=== PATIENT | male | born 1985 | race Caucasian/White ===

== ENCOUNTER 2016-03-17 20:04 | Emergency (ER) | payer OTHER ==
[~2016-03-17] VITALS: Ht 175.3 cm; Wt 65.0 kg
[~2016-03-17 20:04] MED LIST: GABA-113 PO; HYDR2TAB48 PO; MIRT15TA PO
[2016-03-17 20:07] VITALS: TEMP 36.8; Ht 175.3 cm; Wt 65.0 kg
[2016-03-17] MEDS ORDERED: ONDANSETRON INJ 2 MG/ML 2 ML VIAL IV STA (20:46)
[2016-03-17] MEDS ORDERED: SODIUM CHLORIDE 0.9% 1000ML 1,000 ML IV STA (20:46)
[2016-03-17] MEDS ORDERED: HYDROmorphone INJ 1 MG/ML SYR IV STA ×2 (20:46→22:05)
[2016-03-17] MEDS ORDERED: OPTIRAY 320 IV PRN (21:00)
[2016-03-17 21:10] LABS: BASO % 0.2 %; BASO ABS # 0.01 K/uL (0-0.2); COMPLETE YES; EOS % 0.4 %; HEMATOCRIT 46.7 % (42-52); LYMPH % 29.1 %; LYMPH ABS # 1.33 K/uL (1.2-3.4); MEAN CELL VOLUME 86.2 fL (80-100); MEAN CORPUSCULAR HEMOGLOBIN 31.4 pg (25-34); MEAN CORPUSCULAR HGB CONC 36.4 g/dl (32-36); MEAN PLATELET VOLUME 10.2 fL (7.4-10.4); MONO % 10.5 %; NEUT % 59.8 %; PLATELET COUNT 129 K/uL (130-400); RED BLOOD COUNT 5.42 M/uL (4.7-6.1); WHITE BLOOD COUNT 4.57 K/uL (4.8-10.8)
[2016-03-17 21:19] LABS: CALCIUM 8.9 mg/dl (8.5-10.1); CREATININE 0.76 mg/dl (0.60-1.40); POTASSIUM 4.4 mmol/L (3.5-5.1)
--- NOTE | 2016-03-17 21:21 | EMERGENCY ROOM VISIT NOTE ---
History Report prepared by Hannah: Tushar Bosch Under the Supervision of: Dr. Jason Escalante M.D. 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 The pain is severe, but I have been passing gas which is different than last time." History of Present Illness The patient is a 30 year old male who presents to the Emergency Room with complaints of persistent abdominal pain beginning about 2.5 days ago. He notes he has been unable to pass gas for a few days, and that his last bowel movement was early yesterday morning and was minimal. He has had nausea, and induced vomiting but has not vomited on his own. He denies any fever or rash, and has not consumed alcohol recently. The patient notes he has a history of bowel obstruction and has had problems with his SMA. He reports a history of cholecystectomy, but denies any history of pancreatitis. The patient has not taken anything for pain. Source of History: patient Onset: about 2.5 days ago Position: abdomen Quality: other (abdominal pain) Timing: other (persistent) Associated Symptoms: + nausea, + vomiting (self-induced), No fevers, No rash Review of Systems See HPI for pertinent positives & negatives. A total of 10 systems reviewed and were otherwise negative. Past Medical & Surgical Medical Problems: (1) Amputation of right lower extremity (2) History of intestinal obstruction (3) History of left hip replacement Surgical Problems: (1) History of cholecystectomy Family History Cancer Diabetes mellitus Social History Smoking Status: Current Every Day Smoker Marital Status: single Occupation Status: employed Current/Historical Medications Scheduled Gabapentin (Neurontin), 300 MG PO TID Allergies Coded Allergies: Vancomycin (Verified Allergy, RASH, 09/06/12) Physical Exam Vital Signs Date Time Temp Pulse Resp B/P Pulse Ox O2 Delivery O2 Flow Rate FiO2 03/17/16 23:23 52 18 131/79 97 03/17/16 22:10 73 20 125/74 100 Room Air 03/17/16 20:07 36.8 80 18 129/81 98 Room Air Physical Exam GENERAL: Patient is uncomfortable appearing and in moderate distress. HEENT: No acute trauma, normocephalic atraumatic, mucous membranes moist, no nasal congestion, no scleral icterus. NECK: No stridor, no adenopathy, no meningismus, trachea is midline. LUNGS: No dyspnea. Clear to auscultation and equal bilaterally. No wheeze, no rhonchi. HEART: Regular rate and rhythm. No murmurs, rubs, gallops appreciated. ABDOMEN: Soft; tenderness to palpation to the epigastrium; bowel sounds positive , no masses appreciated, no peritonitis. BACK: No midline tenderness, no CVA tenderness EXTREMITIES: Normal motion all extremities, no cyanosis, no edema. NEUROLOGIC: Alert and oriented, no acute motor or sensory deficits, no focal weakness, cranial nerves grossly intact. SKIN: No rash, no jaundice; Diaphoresis noted. Medical Decision & Procedures ER Provider Diagnostic Interpretation: CT results are stated below per my interpretation and the radiologist's interpretation. CT SCAN OF THE ABDOMEN AND PELVIS WITH IV CONTRAST FINDINGS: Lung bases: The heart is normal in size and without pericardial effusion. The lung bases are clear. Liver: The contrast-enhanced liver is normal in size, contour, and attenuation. There is mild central intrahepatic biliary ductal dilatation. The hepatic veins and portal veins are patent. Gallbladder: Surgically absent noting clips in the gallbladder fossa. Spleen: Normal in size and attenuation. Pancreas: Unremarkable. Adrenal glands: Unremarkable. Kidneys: The contrast enhanced kidneys are normal in size and without hydronephrosis. The kidneys enhance symmetrically. Abdominal vasculature: The abdominal aorta is normal in course and caliber noting mild but age advanced atherosclerotic calcification. An infrarenal IVC filter is in place. Stomach and bowel: The gastric mucosa appears slightly thickened and hyperemic. The stomach and duodenum are normal in configuration. There is no bowel obstruction. Assessment of bowel is significant degraded by a paucity of intraperitoneal fat. Several loops of small bowel in the pelvis appears slightly distended and fluid-filled. Mild hyperemia is questioned. The appearance suggests a nonspecific enteritis. No pneumatosis intestinalis or portal venous gas is seen. The appendix is not clearly identified. Peritoneum: There is no intraperitoneal free air or abdominal ascites. Lymphadenopathy: None. Pelvic viscera: Evaluation of the pelvis is significantly degraded by streak artifact from bilateral hip hardware. The bladder, prostate, and seminal vesicles are grossly unremarkable but not well-visualized. Skeletal structures: The skeletal structures appear osteopenic. There is mild lumbosacral spondylosis. No lytic or blastic lesions are seen. A left hip arthroplasty is in place. Postoperative change and posttraumatic deformity is noted in the right proximal femur. Chronic deformity is noted in the pelvis. There is near complete fusion of the sacroiliac joints. 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 IMPRESSION: 1. The examination is significant degraded by a paucity of intraperitoneal fat. 2. The gastric folds appears slightly thickened and hyperemic. Correlate clinically for evidence of gastritis. 2. Several loops of small bowel in the pelvis appear slightly distended and fluid-filled. These loops show questionable mucosal hyperemia. Cortical clinically for evidence of a nonspecific enteritis. 3. No bowel obstruction is seen. 4. Additional chronic and postoperative changes as above. Electronically signed by: Feliz Rene M.D. 03/17/2016 9:50 PM Dictated Date/Time: 03/17/2016 9:43 PM Laboratory Results 03/17/16 20:25 Red Blood Count 5.42, Mean Corpuscular Volume 86.2, Mean Corpuscular Hemoglobin 31.4, Mean Corpuscular Hemoglobin Concent 36.4, Mean Platelet Volume 10.2, Neutrophils (%) (Auto) 59.8, Lymphocytes (%) (Auto) 29.1, Monocytes (%) (Auto) 10.5, Eosinophils (%) (Auto) 0.4, Basophils (%) (Auto) 0.2, Neutrophils # (Auto ) 2.73, Lymphocytes # (Auto) 1.33, Monocytes # (Auto) 0.48, Eosinophils # (Auto ) 0.02, Basophils # (Auto) 0.01 03/17/16 20:25 Test 03/17/16 20:25 03/17/16 20:58 03/17/16 21:03 White Blood Count 4.57 K/uL (4.8-10.8) Red Blood Count 5.42 M/uL (4.7-6.1) Hemoglobin 17.0 g/dL (14.0-18.0) Hematocrit 46.7 % (42-52) Mean Corpuscular Volume 86.2 fL (80-100) Mean Corpuscular Hemoglobin 31.4 pg (25-34) Mean Corpuscular Hemoglobin Concent 36.4 g/dl (32-36) Platelet Count 129 K/uL (130-400) Mean Platelet Volume 10.2 fL (7.4-10.4) Neutrophils (%) (Auto) 59.8 % Lymphocytes (%) (Auto) 29.1 % Monocytes (%) (Auto) 10.5 % Eosinophils (%) (Auto) 0.4 % Basophils (%) (Auto) 0.2 % Neutrophils # (Auto) 2.73 K/uL (1.4-6.5) Lymphocytes # (Auto) 1.33 K/uL (1.2-3.4) Monocytes # (Auto) 0.48 K/uL (0.11-0.59) Eosinophils # (Auto) 0.02 K/uL (0-0.5) Basophils # (Auto) 0.01 K/uL (0-0.2) RDW Standard Deviation 46.3 fL (36.4-46.3) RDW Coefficient of Variation 14.7 % (11.5-14.5) Immature Granulocyte % (Auto) 0.0 % Immature Granulocyte # (Auto) 0.00 K/uL (0.00-0.02) Est Creatinine Clear Calc Drug Dose 129.5 ml/min Estimated GFR () 140.9 Estimated GFR (Non- 121.6 BUN/Creatinine Ratio 25.0 (10-20) Calcium Level 8.9 mg/dl (8.5-10.1) Total Bilirubin 0.7 mg/dl (0.2-1) Direct Bilirubin 0.2 mg/dl (0-0.2) Aspartate Amino Transf (AST/SGOT) 26 U/L (15-37) Alanine Aminotransferase (ALT/SGPT) 71 U/L (12-78) Alkaline Phosphatase 82 U/L (45-117) Total Protein 8.1 gm/dl (6.4-8.2) Albumin 4.0 gm/dl (3.4-5.0) Lipase 145 U/L (73-393) Bedside Lactic Acid Venous 0.53 mmol/L (0.90-1.70) Bedside Hemoglobin 15.6 g/dl (14.0-18.0) Bedside Hematocrit 46 % (42-52) Bedside Sodium 140 mEq/L (135-144) Bedside Potassium 4.2 mEq/L (3.3-5.0) Bedside Chloride 103 mEq/L (101-112) Bedside Total CO2 25 mEq/l (24-31) Anion Gap 17.0 mmol/L (16-25) Bedside Blood Urea Nitrogen 22 mg/dl (7-18) Bedside Creatinine 0.7 mg/dl (0.6-1.3) Bedside Glucose (other) 88 mg/dl (70-99) Bedside Ionized Calcium (Genny) 1.08 mmol/l (1.12-1.32) Laboratory results as reviewed by me. Medications Administered Medications (Trade) Dose Ordered Sig/Todd Route Start Time Stop Time Status Last Admin Dose Admin Sodium Chloride (Nss 1000ml) 1,000 ml @ 999 mls/hr Q1H1M STAT IV 03/17/16 20:46 03/17/16 21:46 DC 03/17/16 20:55 999 MLS/HR Hydromorphone HCl (Dilaudid Inj) 1 mg NOW STAT IV 03/17/16 20:46 03/17/16 20:48 DC 03/17/16 20:55 1 MG Ondansetron HCl (Zofran Inj) 4 mg NOW STAT IV 03/17/16 20:46 03/17/16 20:48 DC 03/17/16 20:55 4 MG Hydromorphone HCl (Dilaudid Inj) 1 mg NOW STAT IV 03/17/16 22:05 03/17/16 22:06 DC 03/17/16 22:17 1 MG Lorazepam (Ativan Inj) 1 mg NOW STAT IV 03/17/16 22:48 03/17/16 22:49 DC 03/17/16 23:07 1 MG Oxycodone HCl (Roxicodone Immediate Rel 5MG Home Pack) 1 homepack UD ONCE PO 03/17/16 23:00 03/17/16 23:01 DC 03/17/16 23:07 1 HOMEPACK Promethazine HCl (Phenergan 25MG Home Pack) 1 homepack UD ONCE PO 03/17/16 23:00 03/17/16 23:01 DC 03/17/16 23:07 1 HOMEPACK ED Course 2041: The patient was evaluated in room B12B. A complete history and physical exam was performed. 2045: Ordered Zofran Inj 4 mg IV, Dilaudid Inj HCl 1 mg IV, and NSS 1,000 ml @ 999 mls/hr IV. 2204: Ordered Dilaudid Inj 1 mg IV. 2246: I reassessed the patient and he is feeling better. I discussed the options of watching him overnight at the hospital vs. seeing how he does at home and he prefers to go home. He asked for something so he can get sleep tonight. 8: Ordered Lorazepam 1 mg IV. 0: Ordered Promethazine HCl 1 homepack PO, and Oxycodone HCl 1 homepack PO. 230: Reevaluated the patient. Discussed results and discharge instructions: He verbalized understanding and agreement. The patient is ready for discharge. Medical Decision Differential: Cholecystitis, Gallbladder disfunction, Hepatic Disfunction, Gastritis/PUD, Pancreatitis, ACS, Aortic Pathology, amongst other pathologies entertained. 30 yr old male with chronic abdominal issues though has been doing well recently and denies any recent need for pain medications. Now with epigastric pain for last few days. Given history felt CT reasonable. IV contrast only reveals enteritis with possible gastritis and no clear evidence of intraabdominal infection nor obstructions at this time. As he is not vomiting and has been having BMs and passing gas I feel that this is unlikely obstruction. SMA syndrome would be difficult to diagnose in ED though at current time does not seem to be cause severe enough symptoms requiring admission nor transfer. Lactic acid normal thus I feel there is unlikely any ischemic bowel. Labs unremarkable as well. I discussed with patient option of monitoring in hospital vs trying going home. He much prefers to go home. Will give limited number narcotics to use overnight. If worsening or other concerns rted for further evaluation. Impression Primary Impression: Epigastric abdominal pain Scribe Attestation The scribe's documentation has been prepared under my direction and personally reviewed by me in its entirety. I confirm that the note above accurately reflects all work, treatment, procedures, and medical decision making performed by me. Departure Information Dispostion Home / Self-Care Referrals Warren Crawford M.D. (PCP) Patient Instructions Abdominal Pain - [facility], My [facility] Additional Instructions You have received a narcotic pain medication. These medications may cause drowsiness and should not be used with other sedative medications. Do not drive , drink alcohol, perform dangerous activities, nor make important decisions after taking these medications. half-way use or inappropriate use may lead to addiction. Monitor your pain for the next 12-24 hours and if pain continues return to emergency department. If severe worsening of pain, fevers, worsening nausea/ vomiting, blood in stool, or other concerning symptoms develop, return for further evaluation immediately.
[2016-03-17 21:31] LABS: ISTAT CREATININE 0.7 mg/dl (0.6-1.3); ISTAT HEMOGLOBIN 15.6 g/dl (14.0-18.0); ISTAT IONIZED CALCIUM 1.08 mmol/l (1.12-1.32)
--- NOTE | 2016-03-17 21:52 | DIAGNOSTIC IMAGING REPORT ---
CT SCAN OF THE ABDOMEN AND PELVIS WITH IV CONTRAST CLINICAL HISTORY: Epigastric abdominal pain. COMPARISON STUDY: Abdominal CT dated 11/17/2012. TECHNIQUE: Following the IV administration of 119 cc of Optiray 320, CT scan of the abdomen and pelvis is performed from the lung bases to the proximal femora. Images are reviewed in the axial, sagittal, and coronal planes. IV contrast was administered without complication. Automated dose control exposure was utilized. The examination is degraded by a paucity of intraperitoneal fat. CT DOSE: 271.02 mGy.cm FINDINGS: Lung bases: The heart is normal in size and without pericardial effusion. The lung bases are clear. Liver: The contrast-enhanced liver is normal in size, contour, and attenuation. There is mild central intrahepatic biliary ductal dilatation. The hepatic veins and portal veins are patent. Gallbladder: Surgically absent noting clips in the gallbladder fossa. Spleen: Normal in size and attenuation. Pancreas: Unremarkable. Adrenal glands: Unremarkable. Kidneys: The contrast enhanced kidneys are normal in size and without hydronephrosis. The kidneys enhance symmetrically. Abdominal vasculature: The abdominal aorta is normal in course and caliber noting mild but age advanced atherosclerotic calcification. An infrarenal IVC filter is in place. Stomach and bowel: The gastric mucosa appears slightly thickened and hyperemic. The stomach and duodenum are normal in configuration. There is no bowel obstruction. Assessment of bowel is significant degraded by a paucity of intraperitoneal fat. Several loops of small bowel in the pelvis appears slightly distended and fluid-filled. Mild hyperemia is questioned. The appearance suggests a nonspecific enteritis. No pneumatosis intestinalis or portal venous gas is seen. The appendix is not clearly identified. Peritoneum: There is no intraperitoneal free air or abdominal ascites. Lymphadenopathy: None. Pelvic viscera: Evaluation of the pelvis is significantly degraded by streak artifact from bilateral hip hardware. The bladder, prostate, and seminal vesicles are grossly unremarkable but not well-visualized. Skeletal structures: The skeletal structures appear osteopenic. There is mild lumbosacral spondylosis. No lytic or blastic lesions are seen. A left hip arthroplasty is in place. Postoperative change and posttraumatic deformity is noted in the right proximal femur. Chronic deformity is noted in the pelvis. There is near complete fusion of the sacroiliac joints. 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 IMPRESSION: 1. The examination is significant degraded by a paucity of intraperitoneal fat. 2. The gastric folds appears slightly thickened and hyperemic. Correlate clinically for evidence of gastritis. 2. Several loops of small bowel in the pelvis appear slightly distended and fluid-filled. These loops show questionable mucosal hyperemia. Cortical clinically for evidence of a nonspecific enteritis. 3. No bowel obstruction is seen. 4. Additional chronic and postoperative changes as above. Electronically signed by: Feliz Rene M.D. 03/17/2016 9:50 PM Dictated Date/Time: 03/17/2016 9:43 PM
[2016-03-17] MEDS ORDERED: LORAZEPAM 2 MG/ML 1 ML VIAL IV STA (22:48)
[2016-03-17] MEDS ORDERED: PHENERGAN 25MG HOMEPACK PO ONE (23:00)
[2016-03-17] MEDS ORDERED: OXYCODONE IR HOME PACK PO ONE (23:00)
[2016-03-17 23:23] VITALS: BP 131/79; PULSE 52; O2SAT 97
== END 2016-03-17 23:23 | disposition home or self-care (01) ==
LOC: C.EDB 20:05
DX: R10.13 Epigastric pain (principal); F17.200 Nicotine dependence, unspecified, uncomplicated; Z96.642 Presence of left artificial hip joint; Z90.49 Acquired absence of other specified parts of digestive tract; Z88.1 Allergy status to other antibiotic agents; Z83.3 Family history of diabetes mellitus

== ENCOUNTER 2016-11-05 16:32 | Emergency (ER) | payer OTHER ==
[~2016-11-05] VITALS: Ht 177.8 cm; Wt 68.0 kg
[~2016-11-05 16:32] MED LIST changes: -HYDR2TAB48 PO; -MIRT15TA PO
[2016-11-05 16:34] VITALS: BP 133/74; PULSE 90; TEMP 36.8; O2SAT 98; Ht 177.8 cm; Wt 68.0 kg
[2016-11-05] MEDS ORDERED: HYDR4TAB2 PO (17:02)
[2016-11-05] MEDS ORDERED: GABA1CAP4 PO (17:02)
[2016-11-05] MEDS ORDERED: ALPR-411 PO (17:02)
--- NOTE | 2016-11-06 01:08 | EMERGENCY ROOM VISIT NOTE ---
ED Visit Note First contact with patient: 16:52 Chief Complaint: Medication refill request. History of Present Illness: Mr. Bule is a 31-year-old white male who ambulates into the ED with a pain medication refill request. Historically patient reports he has a history of chronic lumbar back pain and right hip pain. He reports he was traveling this week and had his medication and personal hygiene products in the same bag. His luggage was damaged spilling his shampoo into his prescribed hydromorphone tablets, causing them to be enabled to take. He contacted his insurance company who encouraged him to contact his PCP for possible new prescription. He called his PCPs office and spoke to the nursing staff and they encouraged him to come to the ED. After lengthy conversation I did attempt to contact his primary care provider's office by his primary care provider had already left the office and did not respond to a page. I did review the state database which shows that the patient does get hydromorphone tablets; 4 mg every 8 hours as needed for severe pain. His last prescription was filled 8 days ago. In reviewing his records it does appear that he chronically gets his prescriptions renewed earlier then when the next one is due. I informed the patient I was unable to prescribe any additional prescriptions for hydromorphone. I told him this was a legal issue in that I do not take care of his chronic pain and these medications should only come from the person taking care of his chronic pain. Patient then became sarcastic and insinuated that he would have to buy them off the street or go break or dislocate his hip to receive the medications. I did inform him that these were both not acceptable ways to get additional pain medications. I did encourage them to alternate ibuprofen and Tylenol for pain as well as use ice on areas of pain. I did encourage him to contact his primary care provider tomorrow and asked to speak directly to the physician and not the nursing staff. I did encourage him to return to the ED for any new or concerning symptoms.
== END 2016-11-05 17:30 | disposition home or self-care (01) ==
LOC: C.EDB 16:34 → C.EDD 17:30
DX: Z76.0 Encounter for issue of repeat prescription (principal); G89.29 Other chronic pain; M54.5 Low back pain

== ENCOUNTER 2024-12-09 12:17 | Inpatient (IN) ==
--- NOTE | 2024-12-09 12:28 | Emergency Department Note ---
History of Present Illness General Chief complaint: Hip Pain Stated complaint: ANKLE INFECTION, HIP PAIN Time Seen by Provider: 12/09/24 12:27 History of Present Illness This is a 39-year-old male that presents to the emergency department with complaints of "left ankle infection, left hip pain". The patient notes recurrent left hip dislocations that have been ongoing for some time now. He expresses frustration as local orthopedist he notes is not willing to perform the revision, and is seeking care in the [place] area noting he has not found a surgeon to perform the revision. However he notes that this will not be performed until there is a revision to the right BKA. He presents today noting recurrent left hip dislocation that he is often able to reduce. Furthermore he notes a wound to the left medial ankle. He denies any fevers. No vomiting. Home Medications Medication Instructions Recorded Confirmed Type clonazepam 2 mg tablet (Klonopin) 2 mg PO BID PRN Anxiety/Agitation 11/09/23 12/09/24 History gabapentin 800 mg tablet 800 mg PO TID 11/09/23 12/09/24 History (Neurontin) hydromorphone 2 mg tablet 2 mg PO UD 08/08/24 12/09/24 History (Dilaudid) amlodipine 2.5 mg tablet 2.5 mg PO DAILY 08/09/24 12/09/24 History multivitamin (Daily-Avery tablet) 1 tab PO DAILY #30 tabs 08/11/24 12/09/24 Rx trazodone 100 mg tablet 100 mg PO HS PRN insomnia #30 tabs 08/14/24 12/09/24 Rx nicotine 21 mg/24 hr daily 0 patch transdermal QAM 12/09/24 12/09/24 History transdermal patch (Nicoderm CQ) venlafaxine 150 mg 150 mg PO UD 12/09/24 12/09/24 History capsule,extended release 24 hr venlafaxine 75 mg capsule,extended 75 mg PO UD 12/09/24 12/09/24 History release 24 hr Allergies Allergy/AdvReac Type Severity Reaction Status Date / Time No Known Allergies Allergy Verified 08/08/24 23:02 Past Med/Surg History Problem List 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 (Acute) Elevated C-reactive protein (Acute) Elevated procalcitonin (Acute) Open wound of left ankle (Acute) Alcohol abuse Benzodiazepine dependence Below knee amputation MDD (major depressive disorder), recurrent episode, severe Nicotine dependence Financial insecurity due to debt Medical History (Updated 12/09/24 @ 20:48 by Eliu Blanco PA-C) Alcohol use disorder Depression with suicidal ideation Polyneuropathy Raynaud disease Opioid dependence Urinary retention Chronic hip pain Chronic abdominal pain Amputation of right lower extremity History of left hip replacement Surgical History Status post total hip replacement, left H/O dilation of urethra History of cholecystectomy Social History Smoking Status: Current every day smoker Tobacco Type: Cigarettes Hx Alcohol Use: Yes Alcohol type: hard liquor Hx Substance Use: Yes Preferred Language: Montenegrin Communication Ability: Effective Chemical Process Operator Required: No Beliefs That Will Affect Care: None Current Living Situation: Family Feels Safe at Home: Yes Gender Identity: Male Assistive Devices: Cane, Prosthesis and Wheelchair Review of Systems A total of 10 systems reviewed and were otherwise negative Physical Exam Vital Signs Vital Signs - 24 hr 12/09/24 12:19 12/09/24 12:19 12/09/24 15:41 Temperature 36.9 C 36.8 C Temperature Source Temporal Artery Scan Oral Pulse Rate 104 H Pulse Rate [Apical] Respiratory Rate 18 Respiratory Effort / Characteristics Respiratory Depth Blood Pressure 114/67 Blood Pressure [Left Arm] Blood Pressure Mean 82 Blood Pressure Mean [Left Arm] Pulse Oximetry 97 Oxygen Delivery Method Sepsis Recent Fever Within 48 Hours No Sepsis New/Unexplained Change in Mental Status No Sepsis Action Taken by Nursing No Action Required 12/09/24 15:41 12/09/24 16:25 Temperature Temperature Source Pulse Rate 88 Pulse Rate [Apical] 79 Respiratory Rate 19 Respiratory Effort / Characteristics Non-Labored Spontaneous Respiratory Depth Normal Blood Pressure Blood Pressure [Left Arm] 133/87 Blood Pressure Mean Blood Pressure Mean [Left Arm] 102 Pulse Oximetry 94 Oxygen Delivery Method Room Air Sepsis Recent Fever Within 48 Hours Sepsis New/Unexplained Change in Mental Status Sepsis Action Taken by Nursing VITAL SIGNS - Vital signs and nursing notes were reviewed. Stable and afebrile. GENERAL -39-year-old male appearing his stated age who is in no acute distress. Communicates well with provider and answers questions appropriately. SKIN -there is an erythematous hue to the left foot area with flexion of all toes of the left foot. There is thinning of the musculature throughout the left calf region. 1 cm ulcerative type wound to the left medial ankle. Small amount of yellow purulence noted. HEAD - NC/AT. EYES - PERRL with EOMI bilaterally. Sclera anicteric. EARS - No deformities of external structures noted on gross examination bilaterally. NOSE - Midline and without cyanosis. No epistaxis or purulent drainage noted. MOUTH/OROPHARYNX - Without perioral cyanosis. NECK - Neck with FROM. No nuchal rigidity. LUNGS - CTA CARDIAC - RRR ABDOMEN - Abdominal contour normal without pulsations or visible masses. BS normoactive all four quadrants. No tenderness, palpable masses, hepatosplenomegaly, or ascites noted. EXTREMITIES -skin as above. Right BKA noted. Left lower extremity with intact dorsalis pedis pulse. However the left lower extremity musculature is very thin. The cap refill of all toes are within normal limits. NEUROLOGIC -sensory intact throughout the left lower extremity without deficit. PSYCH -alert, oriented and pleasant on exam. Course Administered Medications Discontinued Medications Gadobutrol (Gadobutrol 30ml Vial) 5.5 ml IV ONCE ONE Stop: 12/09/24 17:26 Last Admin: 12/09/24 17:26 Dose: 5.5 ml Documented By: DALLAS Hydromorphone HCl (Hydromorphone Inj 0.5 Mg/0.5 Ml Syr) 0.5 mg IV NOW STA Stop: 12/09/24 12:52 Last Admin: 12/09/24 14:40 Dose: Not Given Documented By: KARMEN Hydromorphone HCl (Hydromorphone Inj 0.5 Mg/0.5 Ml Syr) 0.5 mg IV NOW STA Stop: 12/09/24 15:08 Last Admin: 12/09/24 15:34 Dose: 0.5 mg Documented By: mls Hydromorphone HCl (Hydromorphone Inj 1 Mg/Ml Syringe) 1 mg IV NOW STA Stop: 12/09/24 18:07 Last Admin: 12/09/24 18:17 Dose: 1 mg Documented By: [email or web address] Ceftriaxone Sodium (Rocephin) 2,000 mg in 50 mls @ 100 mls/hr IV NOW STA Stop: 12/09/24 15:36 Last Infusion: 12/09/24 17:01 Dose: Infused Documented By: kalyani Admin: 12/09/24 15:37 Dose: 100 mls/hr Documented By: kalyani Vancomycin HCl 1,000 mg/ (Sodium Chloride) 520 mls @ 200 mls/hr IV NOW ONE Stop: 12/09/24 17:42 Last Admin: 12/09/24 16:31 Dose: 200 mls/hr Documented By: kalyani Ondansetron HCl (Ondansetron Inj 2 Mg/Ml 2 Ml Vial) 4 mg IV NOW STA Stop: 12/09/24 12:52 Last Admin: 12/09/24 14:40 Dose: Not Given Documented By: KARMEN Ondansetron HCl (Ondansetron Inj 2 Mg/Ml 2 Ml Vial) 4 mg IV NOW STA Stop: 12/09/24 15:08 Last Admin: 12/09/24 15:30 Dose: 4 mg Documented By: kalyani Medical Decision Making Laboratory Data 12/09/24 15:00 12/09/24 15:00 Lab Results 12/09/24 12/09/24 Range/Units 13:40 15:00 WBC Cancelled 8.27 RBC Cancelled 5.02 Hgb Cancelled 15.2 Hct Cancelled 43.5 MCV Cancelled 86.7 MCH Cancelled 30.3 MCHC Cancelled 34.9 RDW Std Deviation Cancelled 46.6 H RDW Coeff of [place] Cancelled 14.7 H Plt Count Cancelled 71 L MPV Cancelled 11.4 Immature Gran % (Auto) Cancelled 0.2 Neut % (Auto) Cancelled 79.5 Lymph % (Auto) Cancelled 10.9 [place] % (Auto) Cancelled 8.3 Eos % (Auto) Cancelled 0.7 Baso % (Auto) Cancelled 0.4 Neut # (Auto) Cancelled 6.57 H Lymph # (Auto) Cancelled 0.90 L [place] # (Auto) Cancelled 0.69 H Eos # (Auto) Cancelled 0.06 Baso # (Auto) Cancelled 0.03 Immature Gran # (Auto) Cancelled 0.02 Absolute Nucleated RBC Cancelled Nucleated RBC % (auto) Cancelled Neutrophils % (Manual) Cancelled Band Neutrophils % Cancelled Lymphocytes % (Manual) Cancelled Prolymphocyte % Cancelled Reactive Lymphs % (Man) Cancelled Monocytes % (Manual) Cancelled Eosinophils % (Manual) Cancelled Basophils % (Manual) Cancelled Metamyelocytes % (Man) Cancelled Myelocytes % (Man) Cancelled Promyelocytes % (Man) Cancelled Blast Cells % (Manual) Cancelled Plasma Cell % (Manual) Cancelled Other Cells % Cancelled Nucleated RBC % Cancelled Neutrophils # (Manual) Cancelled Band Neutrophils # Cancelled Total Absolute Neuts Cancelled Lymphocytes # (Manual) Cancelled Prolymphocyte # Cancelled Reactive Lymphs # Cancelled Total Abs Lymphocytes Cancelled Monocytes # (Manual) Cancelled Eosinophils # (Manual) Cancelled Basophils # (Manual) Cancelled Metamyelocytes # (Man) Cancelled Myelocytes # (Manual) Cancelled Promyelocytes # (Man) Cancelled Blast Cells # (Man) Cancelled Plasma Cell # (Manual) Cancelled Other Cells # Cancelled Nucleated RBCs # (Man) Cancelled Hypersegmented Neuts Cancelled Hyposegmented Neuts Cancelled Hypogranular Neuts Cancelled Large Granular Lymphs Cancelled # Lrg Granular Lymphs Cancelled Hairy Cells Cancelled Smudge Cells Cancelled Toxic Granulation Cancelled Toxic Vacuolation Cancelled Dohle Bodies Cancelled [place]ick Rods Cancelled Platelet Estimate Cancelled Decreased L Hypogranular Platelets Cancelled Giant Platelets Cancelled Platelet Satelliting Cancelled RBC Morphology Cancelled Polychromasia Cancelled Hypochromasia Cancelled Poikilocytosis Cancelled Basophilic Stippling Cancelled Anisocytosis Cancelled Microcytosis Cancelled Macrocytosis Cancelled Spherocytes Cancelled Pappenheimer Bodies Cancelled Sickle Cells Cancelled Target Cells Cancelled Tear Drop Cells Cancelled Ovalocytes Cancelled Stomatocytes Cancelled [place] Bodies Cancelled Echinocytes Cancelled Acanthocytes (Spur) Cancelled Rouleaux Cancelled RBC Agglutinates Cancelled Schistocytes Cancelled ESR 16 H (0-15) mm/hr Sezary Cell Cancelled Sodium 136 (136-145) mmol/L Potassium TNP 4.1 Chloride 103 (98-107) mmol/L Carbon Dioxide 26 (21-32) mmol/L Anion Gap 7 (3-11) BUN 18 (6-23) mg/dl Creatinine 0.61 (0.6-1.4) mg/dl Est Cr Clr Drug Dosing Not Reportable eGFR 124.53 BUN/Creatinine Ratio 29.5 H (10-20) Glucose 106 H (70-99(Fasting)) mg/dl Calcium 9.3 (8.6-10.3) mg/dl Total Bilirubin 0.7 (0.2-1.0) mg/dl AST TNP 58 H ALT 142 H (7-52) U/L Alkaline Phosphatase 128 H (34-104) U/L C-Reactive Protein 14.90 H (0-0.5) mg/dl Total Protein 7.5 (6.0-8.3) gm/dl Albumin 4.2 (3.4-5.0) gm/dl Globulin 3.3 (2.5-4.0) gm/dl Albumin/Globulin Ratio 1.3 (0.9-2) Procalcitonin 10.10 H (0-0.5) ng/ml Blood Parasites ID Cancelled Imaging Data Radiologist's Impression: Hip/Pelvis X-Ray 12/09/24 12:48 3 views of the pelvis and left hip are submitted for review. Comparison is made to the prior examination dated 11/09/2023 Findings: There is new dislocation of the left hip arthroplasty. There is unchanged internal fixation of an old fracture of the right femoral neck. There are unchanged old pubic rami fractures. No clear acute fracture is seen. No other osseous abnormality is identified. There are no radiopaque foreign bodies. Impression: Dislocation of a left hip replacement Electronically signed by Clem Sampson 12-09-2024 2:41 PM Ankle X-Ray 12/09/24 12:51 3 views of the left ankle are submitted for review. Findings: There is fusion of the ankle joint with 2 fixation screws. There has been resection of the lateral malleolus and distal fibular metaphysis. No other osseous abnormality is identified. There are no radiopaque foreign bodies. Impression: 1. No definite acute pathology 2. Ankle joint fusion Electronically signed by Clem Sampson 12-09-2024 3:24 PM Hip/Pelvis X-Ray 12/09/24 15:09 INDICATION: Pain TECHNIQUE: Frontal pelvis and 2 views of the left hip. COMPARISON: Left hip radiographs from earlier in the same day. FINDINGS: Successful interval reduction of the left hip arthroplasty with components in anatomic alignment. Surgical clips project over the proximal left femur. Redemonstrated ORIF of the right femur with intramedullary anthony and screw and chronic deformity of the right femur,bilateral pubic rami and the left acetabulum. IMPRESSION: Successful interval reduction of the left hip arthroplasty with components in anatomic alignment. Electronically signed by Will Sweeney 12-09-2024 4:35 PM Cervical Spine MRI 12/09/24 16:41 MRI CERVICAL SPINE WITH and WITHOUT CONTRAST TECHNIQUE: An MRI examination of the cervical spine was performed. The examination consists of sagittal T1-weighted, inversion recovery and T2 weighted images as well as axial T1-weighted, T2-weighted and gradient echo images. Postcontrast T1-weighted images were also obtained in axial and sagittal planes. IV CONTRAST: 5.5 mL of Gadavist was intravenously administered. INDICATION: Neck pain COMPARISON: FINDINGS: There are marrow edema signals with abnormal enhancement along the inferior endplate of C2 and superior endplate of C3 vertebral body. The intervening disc space at C2-3 also demonstrates abnormal enhancement. Similar but less extensive changes are seen at C3-7 levels with endplate marrow abnormalities of the vertebral bodies without evidence disc signal abnormality. No epidural collection is identified. There are compressive changes of C2-7 vertebral bodies without significant retropulsion. No significant spondylolisthesis. The spinal cord bulk is normal. There are multilevel degenerative changes of the cervical spine as below:. C2-3: Disc osteophyte complex, bilateral facet and uncovertebral hypertrophy. Mild bilateral neural foraminal narrowing. No significant spinal canal narrowing. C3-4: Disc osteophyte complex, bilateral facet and uncovertebral hypertrophy. Mild bilateral neural foraminal narrowing. No significant spinal canal narrowing. C4-5: Disc osteophyte complex, bilateral facet and uncovertebral hypertrophy. Mild right greater than left neural foraminal narrowing. No significant spinal canal narrowing. C5-6: Disc osteophyte complex, bilateral facet and uncovertebral hypertrophy. Mild right greater than left neural foraminal narrowing. No significant spinal canal narrowing. C6-7: Disc osteophyte complex, bilateral facet and uncovertebral hypertrophy. Mild bilateral neural foraminal narrowing. No significant spinal canal narrowing. C7-T1: No significant spinal canal or neural foraminal narrowing at this level. IMPRESSION: Abnormal enhancement and edema signal along the endplates of multiple cervical spine vertebral bodies and intervening disc spaces as above, most pronounced at C2-3 with multilevel compressive changes of the cervical spine vertebral bodies from C2-7. These could be sequela of remote discitis/osteomyelitis and there may be an active component of this process, particularly at C2-3 as discussed above. No epidural collection is identified. Please correlate clinically. Multilevel degenerative changes as above. Electronically signed by Will Sweeney 12-09-2024 7:08 PM MDM Narrative Patient was seen and evaluated as above in room D04b. Review was performed of triage nursing notes and vital signs. I did review pertinent previous visits and patient history. After obtaining a thorough history and physical examination the above work up was performed. Patient presents with the above symptoms. 12:40 PM: As was walking in the room for initial evaluation the patient was audibly in pain. He had his left hip just dislocated again. He demanded that I reduce the left hip immediately. The patient then placed my hand on the left medial knee area and then he pulled the leg laterally and there was audible reduction. Patient neurovascularly intact post reduction. There was difficulty obtaining IV access but ultimately placed by ED attending to the right upper extremity. Labs revealed no leukocytosis or concerning anemia. Thrombocytopenia with platelet count of 71. No evidence of kidney or liver failure but will note transaminitis with AST at 58 and ALT at 142. CRP 14.9. Procalcitonin 10.10. Patient's left hip then redislocated and during imaging x-rays did catch the dislocation. This was reduced essentially at time of imaging and confirmed by repeat radiographs which showed reduction of the dislocation. I did order a left lower extremity Doppler study to further assess to ensure no arterial compromise which could be leading to the ulcerative type wound to the left medial ankle. Furthermore a left ankle x-ray was also performed showing no fracture but there was a fusion. Patient notes the left hip dislocated about 3 times during his time here. It seems to dislocate quite easily. It has been reduced essentially by the patient or with positioning each time. He continues with baseline neurovascular status in the left lower extremity post reductions. Patient was ordered IV analgesia here. I am concerned about infectious etiology noting the left medial ankle wound with the elevated procalcitonin as well. Patient was medicated here with broad-spectrum antibiotics to include IV ceftriaxone and IV vancomycin. Case was discussed with the hospitalist service. Please refer to further documentation regarding his stay. MRI C-spine ordered by hospitalist service. 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
[2024-12-09 14:22] LABS: Alanine Aminotransferase 142 U/L (7-52); Albumin Globulin Ratio 1.3 (0.9-2); Albumin Level 4.2 gm/dl (3.4-5.0); Alkaline Phosphatase 128 U/L (34-104); Anion Gap 7 (3-11); Bilirubin,Total 0.7 mg/dl (0.2-1.0); Blood Urea Nitrogen 18 mg/dl (6-23); Calcium 9.3 mg/dl (8.6-10.3); Carbon Dioxide 26 mmol/L (21-32); Chloride 103 mmol/L (98-107); Globulin 3.3 gm/dl (2.5-4.0); Glucose 106 mg/dl (70-99(Fasting)); Sodium 136 mmol/L (136-145); Total Protein 7.5 gm/dl (6.0-8.3)
[2024-12-09] MEDS: ONDANSETRON INJ 2 MG/ML 2 ML VIAL IV STA ×2 (14:40→15:30)
[2024-12-09] MEDS: HYDROmorphone INJ 0.5 MG/0.5 ML SYR IV STA ×2 (14:40→15:34)
--- NOTE | 2024-12-09 14:41 | XRay Report ---
3 views of the pelvis and left hip are submitted for review. Comparison is made to the prior examination dated 11/09/2023 Findings: There is new dislocation of the left hip arthroplasty. There is unchanged internal fixation of an old fracture of the right femoral neck. There are unchanged old pubic rami fractures. No clear acute fracture is seen. No other osseous abnormality is identified. There are no radiopaque foreign bodies. Impression: Dislocation of a left hip replacement Electronically signed by Clem Sampson 12-09-2024 2:41 PM
[2024-12-09] MEDS ORDERED: VANCOMYCIN CONSULT ACTIVE PRN (15:07)
--- NOTE | 2024-12-09 15:25 | XRay Report ---
3 views of the left ankle are submitted for review. Findings: There is fusion of the ankle joint with 2 fixation screws. There has been resection of the lateral malleolus and distal fibular metaphysis. No other osseous abnormality is identified. There are no radiopaque foreign bodies. Impression: 1. No definite acute pathology 2. Ankle joint fusion Electronically signed by Clem Sampson 12-09-2024 3:24 PM
[2024-12-09] MEDS: cefTRIAXone SODIUM 2,000 MG/50 ML BAG IV STA (15:37)
[2024-12-09 15:45] LABS: Potassium 4.1 mmol/L (3.5-5.1)
[2024-12-09 15:52] LABS: Hematocrit (blood only) 43.5 % (42.0-52.0); Hemoglobin 15.2 g/dl (14.0-18.0); Immature Granulocytes # (auto) 0.02 K/uL (0.01-0.20); Immature Granulocytes % (auto) 0.2 %; Mean Corpuscular Hemoglobin 30.3 pg (25.0-34.0); Mean Corpuscular Volume 86.7 fL (80.0-100.0); Platelet Count 71 K/uL (130-400); RDW Standard Deviation 46.6 fL (36.4-46.3); Red Blood Count 5.02 M/uL (4.70-6.10); White Blood Count 8.27 K/ul (4.8-10.8)
[2024-12-09] MEDS: VANCOMYCIN HCL 1,000 MG in SODIUM CHLORIDE 0.9% 500 ML IV ONE (16:31)
--- NOTE | 2024-12-09 16:35 | XRay Report ---
INDICATION: Pain TECHNIQUE: Frontal pelvis and 2 views of the left hip. COMPARISON: Left hip radiographs from earlier in the same day. FINDINGS: Successful interval reduction of the left hip arthroplasty with components in anatomic alignment. Surgical clips project over the proximal left femur. Redemonstrated ORIF of the right femur with intramedullary anthony and screw and chronic deformity of the right femur,bilateral pubic rami and the left acetabulum. IMPRESSION: Successful interval reduction of the left hip arthroplasty with components in anatomic alignment. Electronically signed by Will Sweeney 12-09-2024 4:35 PM
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
--- NOTE | 2024-12-09 17:00 | Emergency Department Note ---
ED Visit Note I was consulted by the Advanced Practice Provider. I personally made/approved the management plan and take responsibility for the patient management. I performed a substantive portion of the visit. This includes the aspects of: -History/Physical -MDM Patient had difficulty access, failed access by nurses, ID team. I placed a 20- gauge Angiocath in the patient's right upper extremity, basilic vein, under ultrasound guidance. .
[2024-12-09] MEDS: GADOBUTROL 30ML VIAL IV ONE (17:26)
[2024-12-09] MEDS: HYDROmorphone INJ 1 MG/ML SYRINGE IV STA (18:17)
--- NOTE | 2024-12-09 19:09 | Magnetic Resonance Report ---
MRI CERVICAL SPINE WITH and WITHOUT CONTRAST TECHNIQUE: An MRI examination of the cervical spine was performed. The examination consists of sagittal T1-weighted, inversion recovery and T2 weighted images as well as axial T1-weighted, T2-weighted and gradient echo images. Postcontrast T1-weighted images were also obtained in axial and sagittal planes. IV CONTRAST: 5.5 mL of Gadavist was intravenously administered. INDICATION: Neck pain COMPARISON: FINDINGS: There are marrow edema signals with abnormal enhancement along the inferior endplate of C2 and superior endplate of C3 vertebral body. The intervening disc space at C2-3 also demonstrates abnormal enhancement. Similar but less extensive changes are seen at C3-7 levels with endplate marrow abnormalities of the vertebral bodies without evidence disc signal abnormality. No epidural collection is identified. There are compressive changes of C2-7 vertebral bodies without significant retropulsion. No significant spondylolisthesis. The spinal cord bulk is normal. There are multilevel degenerative changes of the cervical spine as below:. C2-3: Disc osteophyte complex, bilateral facet and uncovertebral hypertrophy. Mild bilateral neural foraminal narrowing. No significant spinal canal narrowing. C3-4: Disc osteophyte complex, bilateral facet and uncovertebral hypertrophy. Mild bilateral neural foraminal narrowing. No significant spinal canal narrowing. C4-5: Disc osteophyte complex, bilateral facet and uncovertebral hypertrophy. Mild right greater than left neural foraminal narrowing. No significant spinal canal narrowing. C5-6: Disc osteophyte complex, bilateral facet and uncovertebral hypertrophy. Mild right greater than left neural foraminal narrowing. No significant spinal canal narrowing. C6-7: Disc osteophyte complex, bilateral facet and uncovertebral hypertrophy. Mild bilateral neural foraminal narrowing. No significant spinal canal narrowing. C7-T1: No significant spinal canal or neural foraminal narrowing at this level. IMPRESSION: Abnormal enhancement and edema signal along the endplates of multiple cervical spine vertebral bodies and intervening disc spaces as above, most pronounced at C2-3 with multilevel compressive changes of the cervical spine vertebral bodies from C2-7. These could be sequela of remote discitis/osteomyelitis and there may be an active component of this process, particularly at C2-3 as discussed above. No epidural collection is identified. Please correlate clinically. Multilevel degenerative changes as above. Electronically signed by Will Sweeney 12-09-2024 7:08 PM
[2024-12-09 19:11] LABS: Influenza A virus by PCR Negative (Neg); Influenza B virus by PCR Negative (Neg); SARS CoV2 RNA(COVID-19) Ceph NEGATIVE (Negative)
[2024-12-09] MEDS ORDERED: ACETAMINOPHEN 325 MG TAB PO PRN (20:26)
[2024-12-09] MEDS ORDERED: MELATONIN 3 MG TAB PO PRN (20:26)
[2024-12-09] MEDS ORDERED: HYDROmorphone INJ 0.5 MG/0.5 ML SYR IV PRN (20:26)
[2024-12-09] MEDS: clonazePAM 1 MG TAB PO PRN (22:44)
[2024-12-09] MEDS: ONDANSETRON INJ 2 MG/ML 2 ML VIAL IV PRN (22:44)
--- NOTE | 2024-12-09 22:54 | Ultrasound Report ---
Exam(s): US ARTERIAL LEFT LOWER EXTREMITY EXAM: US Duplex Left Lower Extremity Arteries CLINICAL HISTORY: Reason for exam: Left leg wounds. TECHNIQUE: Real-time duplex ultrasound scan of the left lower extremity arteries integrating B-mode two-dimensional vascular structure, Doppler spectral analysis and color flow Doppler imaging. COMPARISON: No relevant prior studies available. FINDINGS: Left common femoral artery: No occlusion or significant stenosis on color flow and spectral Doppler imaging. Triphasic waveforms were noted.. Left superficial femoral artery: No occlusion or significant stenosis on color flow and spectral Doppler imaging. Triphasic waveforms were noted.. Left popliteal artery: No occlusion or significant stenosis on color flow and spectral Doppler imaging. Triphasic waveforms were noted.. Left calf/foot arteries: No occlusion or significant stenosis on color flow and spectral Doppler imaging. Triphasic and biphasic waveforms were noted.. Soft tissues: Unremarkable. IMPRESSION: No significant arterial vascular compromise is identified. If further evaluation is clinically necessary, consider correlation with CTA. Electronically signed by: Nas Batista MD 12/09/24 22:54 PM
[2024-12-09] MEDS: GABAPENTIN 800 MG TAB PO SCH (23:33)
[2024-12-10] MEDS: VANCOMYCIN HCL / NSS 1,000 MG/270 ML BAG IV SCH (00:23)
[2024-12-10] MEDS: HYDROmorphone INJ 1 MG/ML SYRINGE IV STA (05:47)
[2024-12-10 06:39] LABS: Appearance Urine Clear (Clear); Bacteria Urine Automated None Seen (None Seen); Cast Urine Automated 0-2 /lpf (0-2); Epithelial Cell Urine Auto 0-2 /hpf (0-2); Glucose Urine UA Negative (Negative); RBC Urine Automated 0-2 /hpf (0-2)
[2024-12-10 07:05] LABS: Anion Gap 9.0 (3-11); Blood Urea Nitrogen 18.0 mg/dl (6-23); Calcium 9.2 mg/dl (8.6-10.3); Carbon Dioxide 25.0 mmol/L (21-32); Chloride 104.0 mmol/L (98-107); Creatinine Clr Calc Pharmacy 109.1 ml/min; Glucose 87.0 mg/dl (70-99(Fasting)); Hematocrit (blood only) 42.7 % (42.0-52.0); Hemoglobin 15.2 g/dl (14.0-18.0); Mean Corpuscular Hemoglobin 31.1 pg (25.0-34.0); Mean Corpuscular Volume 87.5 fL (80.0-100.0); Platelet Count 77 K/uL (130-400); Potassium 3.9 mmol/L (3.5-5.1); RDW Standard Deviation 47.4 fL (36.4-46.3); Red Blood Count 4.88 M/uL (4.70-6.10); Sodium 138.0 mmol/L (136-145); White Blood Count 6.61 K/ul (4.8-10.8)
[2024-12-10 07:10] LABS: Alanine Aminotransferase 105.0 U/L (7-52); Albumin Level 4.2 gm/dl (3.4-5.0); Alkaline Phosphatase 112.0 U/L (34-104); Bilirubin,Total 0.6 mg/dl (0.2-1.0); Total Protein 7.2 gm/dl (6.0-8.3)
[2024-12-10 07:18] LABS: Immature Granulocytes # (auto) 0.04 K/uL (0.01-0.20); Immature Granulocytes % (auto) 0.6 %
[2024-12-10] MEDS: MULTIVITAMIN TAB PO SCH (08:35)
[2024-12-10] MEDS: NICOTINE 21 MG/24 HR TDSY TD SCH (08:36)
[2024-12-10] MEDS: POLYETHYLENE (MIRALAX) 17 GM PACK PO SCH (08:37)
[2024-12-10] MEDS: VENLAFAXINE HCL XR 75 MG CAPXR PO SCH (08:37)
[2024-12-10] MEDS: VENLAFAXINE HCL XR 150 MG CAPXR PO SCH (08:37)
[2024-12-10] MEDS: REMOVE NICODERM PATCH SCH (08:42)
[2024-12-10 10:15] LABS: Hep C Ab Rflx HepCQuant RNA Negative (Negative)
[2024-12-10 10:56] LABS: Hep B Surface Ag with confirm Negative (Negative)
[2024-12-10] MEDS ORDERED: NICOTINE POLACRILEX 2 MG GUM MT PRN (10:57)
[2024-12-10] MEDS: HYDROmorphone INJ 1 MG/ML SYRINGE IV PRN (11:28)
--- NOTE | 2024-12-10 13:32 | Pharmacy Report ---
Pharmacy PK ABX Note - Date of Service December 10, 2024 - Assessment and Plan Assessment * 39 year old M receiving ceftriaxone and vancomycin for treatment of possible discitis and/or L ankle cellulitis. * Pertinent microbiologic data includes: blood cultures x2 pending, L ankle p ending * SCr stable and at/near baseline Plan Vancomycin * Loading dose: 1000 mg IV x 1 * Maintenance dose: 1000 mg IV every 8 hours * Target AUC/ELMER of 400-600 mg/L.hr * Random level ordered for: 12/11 @ 0730 Pharmacy will continue to follow and will adjust dose/frequency as necessary. Thank you. Pharmacy has transitioned to AUC monitoring for vancomycin. AUC/ELMER is the preferred PK/PD target and is associated with decreased risk of nephrotoxicity compared to traditional trough targets.
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
[2024-12-10] MEDS: cefTRIAXone SODIUM 2,000 MG/50 ML BAG IV SCH (16:38)
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
[2024-12-10] MEDS: TRIAMCINOLONE ACET 0.5% CR 15 GM TUBE EXT SCH (22:05)
[2024-12-11 07:40] LABS: Hematocrit (blood only) 42.0 % (42.0-52.0); Hemoglobin 15.1 g/dl (14.0-18.0); Mean Corpuscular Hemoglobin 31.5 pg (25.0-34.0); Mean Corpuscular Volume 87.5 fL (80.0-100.0); Platelet Count 104 K/uL (130-400); RDW Standard Deviation 46.6 fL (36.4-46.3); Red Blood Count 4.80 M/uL (4.70-6.10); White Blood Count 8.01 K/ul (4.8-10.8)
[2024-12-11 07:56] LABS: Creatinine Clr Calc Pharmacy 94.1 ml/min
[2024-12-11] MEDS: VANCOMYCIN LEVEL ONE (08:02)
[2024-12-11 08:11] LABS: Thyroid Stimulating Hormone 1.946 uIu/ml (0.300-4.500)
[2024-12-11 08:17] LABS: INR 1.0 (0.9-1.1); Prothrombin Time 10.2 Seconds (9.0-12.0)
[2024-12-11 08:19] LABS: Folate (Folic Acid),Ser orPlas 15.41 ng/ml (>5.38)
[2024-12-11 08:20] LABS: Vitamin B12 890.0 pg/ml (180-914)
--- NOTE | 2024-12-11 08:47 | Pharmacy Report ---
Pharmacy PK ABX Note - Date of Service December 11, 2024 - Assessment and Plan Assessment 12/11 * Random vancomycin level this morning came back at ~16.9 mcg/ml - current regimen associated with AUC/ELMER >600 therefore will scale back and decrease vancomycin dosing to 750 mg iv q 8 hours. This dosing is estimated to achieve goal AUC/ELMER ~500 mg/L.hr. Plan to repeat level in 2-3 days. Ortho/spine consulted to see patient. Ankle cultures with MSSA, prelim bc no growth thus far. 12/10 * 39 year old M receiving ceftriaxone and vancomycin for treatment of possible discitis and/or L ankle cellulitis. * Pertinent microbiologic data includes: blood cultures x2 pending, L ankle pend ing * SCr stable and at/near baseline Plan Vancomycin * change to 750 mg iv q 8 hours Pharmacy will continue to follow and will adjust dose/frequency as necessary. Thank you. Pharmacy has transitioned to AUC monitoring for vancomycin. AUC/ELMER is the preferred PK/PD target and is associated with decreased risk of nephrotoxicity compared to traditional trough targets.
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
--- NOTE | 2024-12-11 16:25 | XRay Report ---
History: Pain Comparison: None Findings: There is no acute fracture or dislocation. Alignment is anatomic. Joint spaces are well maintained. There are small marginal osteophytes about the inferior right glenoid and humeral head. There is no joint effusion or significant soft tissue swelling. Surgical clips seen in the left axilla and upper arm and chest. Impression: No acute bony abnormality Electronically signed by Anurag Gill 12-11-2024 4:25 PM
[2024-12-11] MEDS: CYCLOBENZAPRINE HCL 5 MG TAB PO SCH (16:39)
[2024-12-11] MEDS: KETOROLAC 30 MG/ML VIAL IV SCH (16:39)
[2024-12-11] MEDS: VANCOMYCIN 750 MG in SODIUM CHLORIDE 0.9% 250 ML IV SCH (16:42)
--- NOTE | 2024-12-11 18:53 | Billing Data ---
Date of Service December 11, 2024 Coding Level of Care Code 53941 SUB INP/OBS CARE MIN
[2024-12-11] MEDS: MELATONIN 3 MG TAB PO SCH (21:47)
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
[2024-12-12 09:11] LABS: Hematocrit (blood only) 43.3 % (42.0-52.0); Hemoglobin 15.5 g/dl (14.0-18.0); Immature Granulocytes # (auto) 0.03 K/uL (0.01-0.20); Immature Granulocytes % (auto) 0.4 %; Mean Corpuscular Hemoglobin 31.6 pg (25.0-34.0); Mean Corpuscular Volume 88.4 fL (80.0-100.0); Platelet Count 141 K/uL (130-400); RDW Standard Deviation 46.3 fL (36.4-46.3); Red Blood Count 4.90 M/uL (4.70-6.10); White Blood Count 7.62 K/ul (4.8-10.8)
[2024-12-12 09:25] LABS: Alanine Aminotransferase 56.0 U/L (7-52); Albumin Globulin Ratio 1.4 (0.9-2); Albumin Level 4.5 gm/dl (3.4-5.0); Alkaline Phosphatase 97.0 U/L (34-104); Anion Gap 7.0 (3-11); Bilirubin,Total 0.8 mg/dl (0.2-1.0); Blood Urea Nitrogen 16.0 mg/dl (6-23); Calcium 9.6 mg/dl (8.6-10.3); Carbon Dioxide 27.0 mmol/L (21-32); Chloride 104.0 mmol/L (98-107); Creatinine Clr Calc Pharmacy 103.1 ml/min; Globulin 3.3 gm/dl (2.5-4.0); Glucose 89.0 mg/dl (70-99(Fasting)); Potassium 4.2 mmol/L (3.5-5.1); Sodium 138.0 mmol/L (136-145); Total Protein 7.8 gm/dl (6.0-8.3)
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
[2024-12-12] MEDS ORDERED: Nursing to Pharmacy Communication SCH (11:15)
[2024-12-12] MEDS: KETOROLAC 30 MG/ML VIAL IV ONE (15:24)
[2024-12-13 07:58] LABS: Hematocrit (blood only) 42.1 % (42.0-52.0); Hemoglobin 14.9 g/dl (14.0-18.0); Immature Granulocytes # (auto) 0.02 K/uL (0.01-0.20); Immature Granulocytes % (auto) 0.3 %; Mean Corpuscular Hemoglobin 31.1 pg (25.0-34.0); Mean Corpuscular Volume 87.9 fL (80.0-100.0); Platelet Count 141 K/uL (130-400); RDW Standard Deviation 45.6 fL (36.4-46.3); Red Blood Count 4.79 M/uL (4.70-6.10); White Blood Count 7.76 K/ul (4.8-10.8)
[2024-12-13 08:18] LABS: Anion Gap 6.0 (3-11); Blood Urea Nitrogen 16.0 mg/dl (6-23); Calcium 9.3 mg/dl (8.6-10.3); Carbon Dioxide 25.0 mmol/L (21-32); Chloride 106.0 mmol/L (98-107); Creatinine Clr Calc Pharmacy 134.4 ml/min; Glucose 87.0 mg/dl (70-99(Fasting)); Potassium 3.9 mmol/L (3.5-5.1); Sodium 137.0 mmol/L (136-145)
--- NOTE | 2024-12-13 08:33 | Billing Data ---
Date of Service December 12, 2024 Coding Level of Care Code 81716 SUB INP/OBS CARE 3MIN
[2024-12-13] MEDS: VANCOMYCIN LEVEL ONE (09:03)
--- NOTE | 2024-12-13 09:15 | Pharmacy Report ---
Pharmacy PK ABX Note - Date of Service December 13, 2024 - Assessment and Plan Assessment 12/13: * Day #5 vancomycin/ceftriaxone * Vancomycin level drawn this morning was 10.7mcg/mL. This extrapolates to an AUC below the target range. The vancomycin has been increased back to 1000mg iv q 8 hours. * Left ankle culture finalized growing MSSA and Strep Agalactiae. Blood cultures x 2 are still no growth to date. * Possible C2-C3 discitis/osteomyelitis seen on imaging. ID recommends cervical spine biopsy with culture and pathology to confirm/rule out osteomyelitis. (Will need 6 weeks of antibiotics if confirmed). 12/11 * Random vancomycin level this morning came back at ~16.9 mcg/ml - current regimen associated with AUC/ELMER >600 therefore will scale back and decrease vancomycin dosing to 750 mg iv q 8 hours. This dosing is estimated to achieve goal AUC/ELMER ~500 mg/L.hr. Plan to repeat level in 2-3 days. Ortho/spine consulted to see patient. Ankle cultures with MSSA, prelim bc no growth thus far. 12/10 * 39 year old M receiving ceftriaxone and vancomycin for treatment of possible discitis and/or L ankle cellulitis. * Pertinent microbiologic data includes: blood cultures x2 pending, L ankle pending * SCr stable and at/near baseline Plan Vancomycin * Vancomycin level this morning was 10.7mcg/ml which extrapolates to an AUC of 350mg/L.hr (below target of 400-600mg/L.hr) * Increase maintenance dose to: 1000mg iv q 8 hours. * This is predicted to produce an AUC/ELMER in the target range of 400-600mg/L.hr. * Another vanco level has been scheduled for the morning of 12/14. He also continues on ceftriaxone 2gm iv q 24 hours. Pharmacy will continue to follow and will adjust dose/frequency as necessary. Thank you. Pharmacy has transitioned to AUC monitoring for vancomycin. AUC/ELMER is the preferred PK/PD target and is associated with decreased risk of nephrotoxicity compared to traditional trough targets.
[2024-12-13] MEDS: VANCOMYCIN HCL / NSS 1,000 MG/270 ML BAG IV SCH (09:30)
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
[2024-12-13] MEDS: DAPTOmycin 500 MG in SYRINGE 0 ML IV SCH (18:50)
[2024-12-14] MEDS ORDERED: VANCOMYCIN LEVEL ONE (07:30)
[2024-12-14 08:08] LABS: Hematocrit (blood only) 43.5 % (42.0-52.0); Hemoglobin 15.3 g/dl (14.0-18.0); Immature Granulocytes # (auto) 0.05 K/uL (0.01-0.20); Immature Granulocytes % (auto) 0.5 %; Mean Corpuscular Hemoglobin 30.3 pg (25.0-34.0); Mean Corpuscular Volume 86.1 fL (80.0-100.0); Platelet Count 195 K/uL (130-400); RDW Standard Deviation 45.2 fL (36.4-46.3); Red Blood Count 5.05 M/uL (4.70-6.10); White Blood Count 9.89 K/ul (4.8-10.8)
[2024-12-14 08:24] LABS: Anion Gap 8.0 (3-11); Blood Urea Nitrogen 16.0 mg/dl (6-23); Calcium 9.4 mg/dl (8.6-10.3); Carbon Dioxide 24.0 mmol/L (21-32); Chloride 103.0 mmol/L (98-107); Creatine Kinase 42.0 U/L (30-223); Creatinine Clr Calc Pharmacy 129.8 ml/min; Glucose 97.0 mg/dl (70-99(Fasting)); Potassium 4.0 mmol/L (3.5-5.1); Sodium 135.0 mmol/L (136-145)
[2024-12-14] MEDS: KETOROLAC 30 MG/ML VIAL IV PRN (14:18)
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
[2024-12-15 08:23] VITALS: BP 140/91; PULSE 107; RESP 18; TEMP 97.3; O2SAT 99
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
--- NOTE | 2024-12-19 12:51 | Billing Data ---
Date of Service December 13, 2024 Coding Level of Care Code 50111 SUB INP/OBS CARE MIN
== END 2024-12-15 10:47 | disposition home health service (06) | DRG 560 ==
LOC: ED 12:17 → SUATTDRO 16:52 → EDINP 16:52 → 3W 21:57
DX: L03.116 Cellulitis of left lower limb; T84.021A Dislocation of internal left hip prosthesis, initial encounter; F11.20 Opioid dependence, uncomplicated; F13.20 Sedative, hypnotic or anxiolytic dependence, uncomplicated; M86.8X8 Other osteomyelitis, other site; L97.329 Non-pressure chronic ulcer of left ankle with unspecified severity; F17.210 Nicotine dependence, cigarettes, uncomplicated; F15.20 Other stimulant dependence, uncomplicated; Z95.828 Presence of other vascular implants and grafts; M46.42 Discitis, unspecified, cervical region; D69.6 Thrombocytopenia, unspecified; M46.22 Osteomyelitis of vertebra, cervical region; F10.11 Alcohol abuse, in remission; G89.4 Chronic pain syndrome; Y79.2 Prosthetic and other implants, materials and accessory orthopedic devices associated with adverse incidents; L30.9 Dermatitis, unspecified; Z59.869 Financial insecurity, unspecified; Y92.019 Unspecified place in single-family (private) house as the place of occurrence of the external cause; F33.2 Major depressive disorder, recurrent severe without psychotic features; G57.92 Unspecified mononeuropathy of left lower limb; Z89.511 Acquired absence of right leg below knee

== ENCOUNTER 2025-01-10 11:01 | Inpatient (IN) ==
--- NOTE | 2025-01-10 12:06 | Emergency Department Note ---
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 The patient has a history of osteomyelitis. He has a history of an infection in his ankle which they think may have spread to his cervical spine. The patient was recently admitted to our facility. He was discharged on IV antibiotics including Rocephin and daptomycin. The patient presented to the emergency department today because of ongoing and worsening pain. He has a history of left hip dislocation. He states that this happens frequently and he thinks he dislocated it earlier today. He is complaining of neck pain as well as hip pain. He does take pain medication at home. He has not seen his family doctor for the symptoms but came directly to the emergency department. He denies having any fever but sometimes has been waking up at night feeling very hot. ROS: See above HPI for pertinent positives & negatives. A total of 10 systems reviewed and were otherwise negative. PAST MEDICAL HISTORY: See Below PAST SURGICAL HISTORY: See Below FAMILY HISTORY: See Below SOCIAL HISTORY: See Below HOME MEDICATIONS: See Below ALLERGIES: See Below VITALS: See Below PHYSICAL EXAMINATION: GENERAL: Patient is awake alert in no acute distress patient is resting comfortably and showing no signs of anxiety EYES: The conjunctivae are clear. The pupils are round and reactive. EARS, NOSE, MOUTH AND THROAT: The nose is without any evidence of any deformity. NECK: The patient has a soft collar that he wears. The patient has pain with range of motion testing which he states is not new. RESPIRATORY: Normal respiratory effort is noted there is no evidence of wheezing rhonchi or rales CARDIOVASCULAR: Regular rate and rhythm noted there no murmurs rubs or gallops normal S1 normal S2. GASTROINTESTINAL: The abdomen is soft. Abdomen is nontender. MUSCULOSKELETAL/EXTREMITIES: Right lower extremity amputation was noted. SKIN: There is an ulceration on the medial aspect of the left ankle. There is no erythema going up the leg. NEUROLOGIC: Patient is awake alert and oriented x3 MEDICAL DECISION MAKING: The patient is a 39-year-old male who presented to the emergency department for an evaluation of multiple complaints. The patient has a history of cervical spine osteomyelitis. He also has multiple pressure ulcers on his scalp and his sacrum. The patient presented to the emergency department for pain as well as nausea. The patient had very reassuring vital signs as well as reassuring laboratory studies. The patient was not comfortably discharged home. He does use IV antibiotics at home. He does have outpatient follow-up but the patient was not comfortable with this so I discussed his condition with the on-call [facility] hospitalist. Triage Nursing notes reviewed. Prior medical records reviewed Vital Signs: reviewed and remarkable for no significant abnormalities Differential diagnosis: Fracture, subluxation, dislocation, contusion, ligamentous injury, neurovascular, compartment syndrome, rhabdomyolysis, as well as other pathologies. ER treatment provided: See below Diagnostics interpreted by me: ECG: EKG was obtained in the emergency department. My interpretation is normal sinus rhythm at 84 bpm. There is no ectopy. Nonspecific ST abnormalities were appreciated. QTc was 472 ms. Cardiac Monitoring: An order was placed for continuous cardiac monitoring. The monitor shows a rate of 77 bpm with sinus rhythm. Laboratory studies: As stated above and show below. Imaging studies: See below. Radiographic imaging was reviewed by myself Consultation(s): I discussed this case with Dr. Weiss who is on-call for the [facility]. 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 (Acute) Elevated C-reactive protein (Acute) Elevated procalcitonin (Acute) Open wound of left ankle (Acute) Alcohol abuse Benzodiazepine dependence Below knee amputation MDD (major depressive disorder), recurrent episode, severe Nicotine dependence Financial insecurity due to debt Medical History Presence of IVC filter Alcohol use disorder Depression with suicidal ideation Polyneuropathy Raynaud disease Opioid dependence Urinary retention Chronic hip pain Chronic abdominal pain Amputation of right lower extremity History of left hip replacement Surgical History Status post total hip replacement, left H/O dilation of urethra History of cholecystectomy Social History Smoking Status: Current every day smoker Tobacco Type: Cigarettes packs per day: 1; Do You Dip or Chew Tobacco: No; Hx Alcohol Use: Yes Alcohol type: beer Alcohol type Comment: 12/09/24 - reports no etoh intake in several months Hx Substance Use: Yes Prescribed Medications: Marijuana Last Used Substance: Just Prior to Arrival Preferred Language: Marshallese Communication Ability: Effective Cuprous Chloride Helper Required: No Beliefs That Will Affect Care: None marital status: Single Current Living Situation: Alone current occupational status: disabled How many Children do You have: 0 Feels Safe at Home: Yes Gender Identity: Male Assistive Devices: Prosthesis, Walker and Wheelchair Allergies Allergies Allergy/AdvReac Type Severity Reaction Status Date / Time No Known Allergies Allergy Verified 08/08/24 23:02 Home Meds Home Medications Medication Instructions Recorded Confirmed clonazepam 2 mg tablet (Klonopin) 2 mg PO BID PRN Anxiety/Agitation 11/09/23 01/10/25 gabapentin 800 mg tablet 800 mg PO TID 11/09/23 01/10/25 (Neurontin) hydromorphone 2 mg tablet 2 mg PO Q3H PRN Pain, Severe 08/08/24 01/10/25 (Dilaudid) amlodipine 2.5 mg tablet 2.5 mg PO DAILY 08/09/24 01/10/25 ceftriaxone 2 gram solution for 2 g IV DIRECTED 01/10/25 01/10/25 injection daptomycin 500 mg intravenous 0 mg IV DAILY 01/10/25 01/10/25 solution duloxetine 20 mg capsule,delayed 20 mg PO DAILY 01/10/25 01/10/25 release trazodone 100 mg tablet 150 mg PO HS PRN insomnia 01/10/25 01/10/25 Previous Rx's Medication Instructions Recorded cyclobenzaprine 5 mg tablet 5 mg PO Q8H #42 tabs 12/15/24 hydromorphone 4 mg tablet 4 mg PO QID #12 tabs 12/15/24 ibuprofen 600 mg tablet 600 mg PO TID #42 tabs 12/15/24 pantoprazole 40 mg tablet,delayed 40 mg PO DAILY #14 tabs 12/15/24 release Results & Data (ED) Vital Signs Vital Signs - 24 hr 01/10/25 11:03 01/10/25 12:23 01/10/25 12:28 Temperature 36.8 C Temperature Source Oral Pulse Rate 98 H 81 Pulse Rate [Apical] 77 Pulse Rhythm Regular Respiratory Rate 18 16 16 Respiratory Effort / Characteristics Non-Labored Spontaneous Non-Labored Spontaneous Respiratory Depth Normal Normal Respiratory Pattern Regular Blood Pressure 117/66 Blood Pressure [Right Arm] 117/78 Blood Pressure Mean 83 Blood Pressure Mean [Right Arm] 91 Blood Pressure Position Sitting Pulse Oximetry 97 94 95 Oxygen Delivery Method Room Air Room Air Room Air Sepsis Recent Fever Within 48 Hours No Sepsis New/Unexplained Change in Mental Status No Sepsis Action Taken by Nursing No Action Required 01/10/25 12:30 01/10/25 14:33 Temperature Temperature Source Pulse Rate 79 73 Pulse Rate [Apical] Pulse Rhythm Respiratory Rate 14 16 Respiratory Effort / Characteristics Respiratory Depth Respiratory Pattern Blood Pressure 119/80 116/80 Blood Pressure [Right Arm] Blood Pressure Mean 93 92 Blood Pressure Mean [Right Arm] Blood Pressure Position Pulse Oximetry 97 96 Oxygen Delivery Method Room Air Room Air Sepsis Recent Fever Within 48 Hours Sepsis New/Unexplained Change in Mental Status Sepsis Action Taken by Retirement Medications Current Medication List: was personally reviewed by me Laboratory Data Attestation: I reviewed the patient's lab results. 01/10/25 12:10 01/10/25 12:10 Lab Results 01/10/25 Range/Units 12:10 WBC 5.36 (4.8-10.8) K/ul RBC 4.27 L (4.70-6.10) M/uL Hgb 13.1 L (14.0-18.0) g/dL Hct 37.3 L (42.0-52.0) % MCV 87.4 (80.0-100.0) fL MCH 30.7 (25.0-34.0) pg MCHC 35.1 (32.0-36.0) g/dL RDW Std Deviation 47.7 H (36.4-46.3) fL RDW Coeff of [place] 15.0 H (11.5-14.5) % Plt Count 142 (130-400) K/uL MPV 10.3 (9.4-12.4) fL Immature Gran % (Auto) 0.4 % Neut % (Auto) 62.9 % Lymph % (Auto) 17.2 % [place] % (Auto) 7.6 % Eos % (Auto) 10.4 % Baso % (Auto) 1.5 % Neut # (Auto) 3.37 (1.40-6.50) K/uL Lymph # (Auto) 0.92 L (1.20-3.40) K/uL [place] # (Auto) 0.41 (0.11-0.59) K/uL Eos # (Auto) 0.56 H (0.00-0.50) K/uL Baso # (Auto) 0.08 (0.00-0.20) K/uL Immature Gran # (Auto) 0.02 (0.01-0.20) K/uL PT 11.4 (9.0-12.0) Seconds INR 1.1 (0.9-1.1) APTT 26 (21-31) Seconds PTT Ratio 1.0 Sodium 140 (136-145) mmol/L Potassium 4.1 (3.5-5.1) mmol/L Chloride 106 (98-107) mmol/L Carbon Dioxide 26 (21-32) mmol/L Anion Gap 8 (3-11) BUN 9 (6-23) mg/dl Creatinine 0.73 (0.6-1.4) mg/dl Est Cr Clr Drug Dosing 108.7 ml/min eGFR 117.95 BUN/Creatinine Ratio 12.3 (10-20) Glucose 102 H (70-99(Fasting)) mg/dl Calcium 9.4 (8.6-10.3) mg/dl Total Bilirubin 0.5 (0.2-1.0) mg/dl AST 15 (13-39) U/L ALT 11 (7-52) U/L Alkaline Phosphatase 67 (34-104) U/L Troponin I High Sens < 2.3 (0-20) pg/ml C-Reactive Protein 1.37 H (0-0.5) mg/dl Total Protein 7.1 (6.0-8.3) gm/dl Albumin 3.9 (3.4-5.0) gm/dl Globulin 3.2 (2.5-4.0) gm/dl Albumin/Globulin Ratio 1.2 (0.9-2) Lipase 15 (11-82) U/L Procalcitonin 0.10 (0-0.5) ng/ml Administered Medications Discontinued Medications Hydromorphone HCl (Hydromorphone Inj 0.5 Mg/0.5 Ml Syr) 0.5 mg IV Q15M PRN PRN Reason: Pain Stop: 01/24/25 11:41 Last Admin: 01/10/25 12:30 Dose: 0.5 mg Documented By: fredrick Hydromorphone HCl (Hydromorphone Hcl 2 Mg Tab) 4 mg PO NOW STA Stop: 01/10/25 14:20 Last Admin: 01/10/25 15:04 Dose: 4 mg Documented By: SHELLY Sodium Chloride (Nss) 1,000 mls @ 999 mls/hr IV .Q1H1M STA Stop: 01/10/25 12:42 Last Infusion: 01/10/25 14:33 Dose: Infused Documented By: Admin: 01/10/25 12:30 Dose: 999 mls/hr Documented By: fredrick Ondansetron HCl (Ondansetron Inj 2 Mg/Ml 2 Ml Vial) 4 mg IV NOW STA Stop: 01/10/25 11:43 Last Admin: 01/10/25 12:29 Dose: 4 mg Documented By: fredrick Imaging Data Attestation: I personally reviewed and interpreted this imaging study as follows: My Impression: 1 view chest x-ray was obtained in the emergency department. My interpretation is no free air or definite infiltrate, final report below. Radiologist's Impression: Chest X-Ray 01/10/25 11:42 XR chest 1V portable HISTORY: 39 years-old Male pain acute chest pain COMPARISON: Acute abdominal series radiographs 11/17/2012 TECHNIQUE: AP view of the chest FINDINGS: Surgical clips project over the upper abdomen and left chest. Unchanged linear metallic density focus projects of the left hilum. There is no pneumothorax, pleural effusion, airspace consolidation or pulmonary edema. Left-sided PICC is partially imaged, distal tip in the expected location of the mid SVC. Bones appear grossly intact. IMPRESSION: No acute process. ACT 112: Negative or not required by law. The above report was generated using voice recognition software. It may contain grammatical, syntax or spelling errors. Electronically signed by: Vimal Mccray M.D. 01/10/2025 1:46 PM Hip/Pelvis X-Ray 01/10/25 11:42 XR hip LT 2V w pelvis HISTORY: 39 years-old Male pain acute pelvic and hip pain COMPARISON: 12/09/2024 TECHNIQUE: AP view of the pelvis with 2 views of the left hip FINDINGS: ORIF hardware of the right proximal femur with left hip arthroplasty. Chronic fracture deformities of the pelvic ring redemonstrated. There is apparent bony fusion involving the SI joints. No acute fracture or dislocation identified. Surgical clips project over the left proximal femoral diaphysis. IMPRESSION: 1. No acute fracture or dislocation identified. 2. Chronic postoperative and posttraumatic findings as above. ACT 112: Negative or not required by law. The above report was generated using voice recognition software. It may contain grammatical, syntax or spelling errors. Electronically signed by: Vimal Mccray M.D. 01/10/2025 1:48 PM KUB X-Ray 01/10/25 11:43 KUB CLINICAL HISTORY: Abdominal pain. COMPARISON STUDY: CT of the abdomen and pelvis March 03, 2022.. FINDINGS: Abdominal surgical clips, IVC filter, right femoral internal fixation hardware and a left hip arthroplasty is incidentally noted. The bowel gas pattern is normal. The amount of stool is within normal limits. No evidence for free air on supine exam. Avascular necrosis of the right femoral head and left pubic ring fractures are incidentally noted. IMPRESSION: No evidence for a bowel obstruction. ACT 112: Negative or not required by law. Electronically signed by: David Connors M.D. 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
[2025-01-10 12:28] LABS: Hematocrit (blood only) 37.3 % (42.0-52.0); Hemoglobin 13.1 g/dL (14.0-18.0); Immature Granulocytes # (auto) 0.02 K/uL (0.01-0.20); Immature Granulocytes % (auto) 0.4 %; Mean Corpuscular Hemoglobin 30.7 pg (25.0-34.0); Mean Corpuscular Volume 87.4 fL (80.0-100.0); Platelet Count 142 K/uL (130-400); RDW Standard Deviation 47.7 fL (36.4-46.3); Red Blood Count 4.27 M/uL (4.70-6.10); White Blood Count 5.36 K/ul (4.8-10.8)
[2025-01-10] MEDS: ONDANSETRON INJ 2 MG/ML 2 ML VIAL IV STA (12:29)
[2025-01-10] MEDS: HYDROmorphone INJ 0.5 MG/0.5 ML SYR IV PRN ×2 (12:30→18:00)
[2025-01-10] MEDS: SODIUM CHLORIDE 0.9% 1,000 ML IV STA (12:30)
[2025-01-10 12:39] LABS: INR 1.1 (0.9-1.1); Partial Thromboplastin Time 26 Seconds (21-31); Prothrombin Time 11.4 Seconds (9.0-12.0)
[2025-01-10 13:08] LABS: Creatinine Clr Calc Pharmacy 108.7 ml/min
--- NOTE | 2025-01-10 13:45 | XRay Report ---
KUB CLINICAL HISTORY: Abdominal pain. COMPARISON STUDY: CT of the abdomen and pelvis March 03, 2022.. FINDINGS: Abdominal surgical clips, IVC filter, right femoral internal fixation hardware and a left h ip arthroplasty is incidentally noted. The bowel gas pattern is normal. The amount of stool is within normal limits. No evidence for free air on supine exam. Avascular necrosis of the right femoral head and left pubic ring fractures are incidentally noted. IMPRESSION: No evidence for a bowel obstruction. ACT 112: Negative or not required by law. Electronically signed by: David Connors M.D. 01/10/2025 1:44 PM
--- NOTE | 2025-01-10 13:47 | XRay Report ---
XR chest 1V portable HISTORY: 39 years-old Male pain acute chest pain COMPARISON: Acute abdominal series radiographs 11/17/2012 TECHNIQUE: AP view of the chest FINDINGS: Surgical clips project over the upper abdomen and left chest. Unchanged linear metallic density focus projects of the left hilum. There is no pneumothorax, pleural effusion, airspace consolidation or pu lmonary edema. Left-sided PICC is partially imaged, distal tip in the expected location of the mid SV C. Bones appear grossly intact. IMPRESSION: No acute process. ACT 112: Negative or not required by law. The above report was generated using voice recognition software. It may contain grammatical, syntax o r spelling errors. Electronically signed by: Vimal Mccray M.D. 01/10/2025 1:46 PM
--- NOTE | 2025-01-10 13:49 | XRay Report ---
XR hip LT 2V w pelvis HISTORY: 39 years-old Male pain acute pelvic and hip pain COMPARISON: 12/09/2024 TECHNIQUE: AP view of the pelvis with 2 views of the left hip FINDINGS: ORIF hardware of the right proximal femur with left hip arthroplasty. Chronic fracture deformities of the pelvic ring redemonstrated. There is apparent bony fusion involving the SI joints. No acute frac ture or dislocation identified. Surgical clips project over the left proximal femoral diaphysis. IMPRESSION: 1. No acute fracture or dislocation identified. 2. Chronic postoperative and posttraumatic findings as above. ACT 112: Negative or not required by law. The above report was generated using voice recognition software. It may contain grammatical, syntax o r spelling errors. Electronically signed by: Vimal Mccray M.D. 01/10/2025 1:48 PM
[2025-01-10 13:57] LABS: Albumin Level 3.9 gm/dl (3.4-5.0); Anion Gap 8 (3-11); Bilirubin,Total 0.5 mg/dl (0.2-1.0); Calcium 9.4 mg/dl (8.6-10.3); Carbon Dioxide 26 mmol/L (21-32); Chloride 106 mmol/L (98-107); Potassium 4.1 mmol/L (3.5-5.1); Sodium 140 mmol/L (136-145)
[2025-01-10 14:03] LABS: Alanine Aminotransferase 11 U/L (7-52); Albumin Globulin Ratio 1.2 (0.9-2); Alkaline Phosphatase 67 U/L (34-104); Blood Urea Nitrogen 9 mg/dl (6-23); Globulin 3.2 gm/dl (2.5-4.0); Glucose 102 mg/dl (70-99(Fasting)); Lipase 15 U/L (11-82); Total Protein 7.1 gm/dl (6.0-8.3)
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
[2025-01-10 15:47] LABS: Appearance Urine Clear (Clear); Bacteria Urine Automated None Seen (None Seen); Cast Urine Automated 0-2 /lpf (0-2); Epithelial Cell Urine Auto 0-2 /hpf (0-2); Glucose Urine UA Negative (Negative); RBC Urine Automated 0-2 /hpf (0-2); WBC Urine Automated 0-5 /hpf (0-5)
[2025-01-10] MEDS ORDERED: HYDROmorphone INJ 0.5 MG/0.5 ML SYR IV PRN (17:05)
[2025-01-10] MEDS ORDERED: CYCLOBENZAPRINE HCL 5 MG TAB PO SCH (17:05)
[2025-01-10] MEDS ORDERED: MELATONIN 3 MG TAB PO PRN (17:05)
[2025-01-10] MEDS ORDERED: CEFTRIAXONE 2 GM IV SCH (17:05)
[2025-01-10] MEDS ORDERED: ONDANSETRON INJ 2 MG/ML 2 ML VIAL IV PRN (17:05)
[2025-01-10] MEDS ORDERED: KETOROLAC TROMETHAMINE 15 MG/ML VIAL IV PRN (17:05)
[2025-01-10] MEDS ORDERED: ACETAMINOPHEN 500 MG TAB PO PRN (17:05)
[2025-01-10] MEDS: CYCLOBENZAPRINE HCL 5 MG TAB PO SCH (18:00)
[2025-01-10] MEDS: DAPTOmycin 600 MG in SYRINGE 0 ML IV SCH (18:00)
[2025-01-10] MEDS: cefTRIAXone SODIUM 2,000 MG/50 ML BAG IV SCH (18:00)
[2025-01-10] MEDS: KETOROLAC TROMETHAMINE 15 MG/ML VIAL IV SCH (18:30)
[2025-01-10 19:03] LABS: Creatine Kinase 44 U/L (30-223)
[2025-01-10] MEDS: REMOVE NICODERM PATCH SCH (20:20)
[2025-01-10] MEDS: GABAPENTIN 800 MG TAB PO SCH (20:24)
[2025-01-10] MEDS: NICOTINE 21 MG/24 HR TDSY TD SCH (20:25)
[2025-01-10] MEDS: clonazePAM 1 MG TAB PO PRN (21:13)
[2025-01-10 21:28] LABS: Cdiff Toxin B Gene (2yr or >) Negative Cdiff Gene (Neg)
[2025-01-10 21:57] LABS: Adenovirus F 40/41 PCR Not Detected (NotDetected); Campylobacter PCR Not Detected (NotDetected); Enteroaggregative E.coli(EAEC) Not Detected (NotDetected); Shiga-like Toxin E.coli (STEC) Not Detected (NotDetected); Vibrio species PCR Not Detected (NotDetected)
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
[2025-01-11 07:54] LABS: Hematocrit (blood only) 35.2 % (42.0-52.0); Hemoglobin 12.2 g/dL (14.0-18.0); Immature Granulocytes # (auto) 0.01 K/uL (0.01-0.20); Immature Granulocytes % (auto) 0.2 %; Mean Corpuscular Hemoglobin 30.7 pg (25.0-34.0); Mean Corpuscular Volume 88.7 fL (80.0-100.0); Platelet Count 149 K/uL (130-400); RDW Standard Deviation 48.8 fL (36.4-46.3); Red Blood Count 3.97 M/uL (4.70-6.10); White Blood Count 5.61 K/ul (4.8-10.8)
[2025-01-11 08:21] LABS: INR 1.1 (0.9-1.1); Prothrombin Time 11.3 Seconds (9.0-12.0)
[2025-01-11 08:22] LABS: Anion Gap 7.0 (3-11); Blood Urea Nitrogen 14.0 mg/dl (6-23); Calcium 9.0 mg/dl (8.6-10.3); Carbon Dioxide 26.0 mmol/L (21-32); Chloride 107.0 mmol/L (98-107); Creatinine Clr Calc Pharmacy 95.0 ml/min; Glucose 80.0 mg/dl (70-99(Fasting)); Potassium 3.9 mmol/L (3.5-5.1); Sodium 140.0 mmol/L (136-145)
[2025-01-11] MEDS ORDERED: REMOVE NICODERM PATCH SCH (08:59)
[2025-01-11] MEDS ORDERED: NICOTINE 21 MG/24 HR TDSY TD SCH (09:00)
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
[2025-01-11] MEDS: ACETAMINOPHEN 500 MG TAB PO SCH (09:49)
[2025-01-11] MEDS: ADVANCED PROBIOTIC 625 MG CAPSULE PO SCH (09:50)
[2025-01-11] MEDS: DAPTOmycin 500 MG in SYRINGE 0 ML IV SCH (18:30)
--- NOTE | 2025-01-12 00:59 | XRay Report ---
Exam(s): XR ORBITS EXAM: XR Orbits, 3or More Views CLINICAL HISTORY: Reason for exam: Screening for foreign body for MRI. TECHNIQUE: AP, Rice and lateral views of the orbits. COMPARISON: No relevant prior studies available. FINDINGS: Bones/joints: Unremarkable. No acute fracture. Sinuses: Unremarkable. No air-fluid levels. Soft tissues: Unremarkable. No radiopaque foreign body. IMPRESSION: No evidence of radiopaque foreign body. Electronically signed by: Abigail Amezcua MD 01/12/25 00:58 AM
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
[2025-01-12 07:27] LABS: Hematocrit (blood only) 40.2 % (42.0-52.0); Hemoglobin 13.7 g/dL (14.0-18.0); Immature Granulocytes # (auto) 0.02 K/uL (0.01-0.20); Immature Granulocytes % (auto) 0.3 %; Mean Corpuscular Hemoglobin 30.4 pg (25.0-34.0); Mean Corpuscular Volume 89.3 fL (80.0-100.0); Platelet Count 160 K/uL (130-400); RDW Standard Deviation 49.9 fL (36.4-46.3); Red Blood Count 4.50 M/uL (4.70-6.10); White Blood Count 6.00 K/ul (4.8-10.8)
[2025-01-12 07:50] LABS: Anion Gap 5.0 (3-11); Blood Urea Nitrogen 23.0 mg/dl (6-23); Calcium 9.2 mg/dl (8.6-10.3); Carbon Dioxide 30.0 mmol/L (21-32); Chloride 106.0 mmol/L (98-107); Creatinine Clr Calc Pharmacy 90.0 ml/min; Glucose 111.0 mg/dl (70-99(Fasting)); Potassium 4.4 mmol/L (3.5-5.1); Sodium 141.0 mmol/L (136-145)
--- NOTE | 2025-01-12 09:22 | Electrocardiogram Report ---
Test Reason : Blood Pressure : */* mmHG Vent. Rate : 84 BPM Atrial Rate : 84 BPM P-R Int : 166 ms QRS Dur : 90 ms QT Int : 400 ms P-R-T Axes : 76 97 52 degrees QTcB Int : 472 ms Normal sinus rhythm Rightward axis Borderline ECG When compared with ECG of 13-Sep-2007 00:08, No significant change HR has decreased Confirmed by Jean Steward ([id number]) on 01/12/2025 9:22:15 AM Referred By: REFERRED SELF Confirmed By: Jean Steward
[2025-01-12 10:21] LABS: A calco-baum cmplx NotReported Not Detected (NotDetected); Bact fragilis Not Reported Not Detected (NotDetected); Blood Culture Id Panel See PCR Comment (NotDetected); C auris Not Reported Not Detected (NotDetected); Calbicans Not Reported Not Detected (NotDetected); Candida glabrata Not Reported Not Detected (NotDetected); Candida krusei Not Reported Not Detected (NotDetected); Cneoformans/gatti Not Reported Not Detected (NotDetected); Cparapsilosis Not Reported Not Detected (NotDetected); Ctropicalis Not Reported Not Detected (NotDetected); E cloacae compx Not Reported Not Detected (NotDetected); Efaecalis Not Reported Not Detected (NotDetected); Efaecium Not Reported Not Detected (NotDetected); Enterobacterales Not Reported Not Detected (NotDetected); Escherichia coli Not Reported Not Detected (NotDetected); H influenzae Not Reported Not Detected (NotDetected); K aerogenes Not Reported Not Detected (NotDetected); Koxytoca Not Reported Not Detected (NotDetected); Kpneumoniae grp Not Reported Not Detected (NotDetected); Lmonocyt Not Reported Not Detected (NotDetected); N meningitidis Not Reported Not Detected (NotDetected); P aeruginosa Not Reported Not Detected (NotDetected); Proteus spp Not Reported Not Detected (NotDetected); Salmonella spp Not Reported Not Detected (NotDetected); Staph lugdunensis Not Reported Not Detected (NotDetected); Staph spp. Not Reported Not Detected (NotDetected); Staphaureus Not Reported Not Detected (NotDetected); Staphepi Not Reported Not Detected (NotDetected); Stenmaltophilia Not Reported Not Detected (NotDetected); Strep agal(GrpB) Not Reported Not Detected (NotDetected); Strep pneum Not Reported Not Detected (NotDetected); Strep pyog (GrpA) Not Reported Not Detected (NotDetected); Strep spp Not Reported DETECTED (NotDetected)
[2025-01-12 10:31] LABS: Streptococcus spp DETECTED (NotDetected)
[2025-01-12] MEDS: GADOBUTROL 65ML VIAL IV ONE (13:55)
[2025-01-12] MEDS: 4.5GM X1 IV STA (14:53)
--- NOTE | 2025-01-12 15:06 | Magnetic Resonance Report ---
MRI OF THE CERVICAL SPINE WITH AND WITHOUT CONTRAST CLINICAL HISTORY: Cervical spine discitis/osteomyelitis. COMPARISON: MRI of the cervical spine December 09, 2024. TECHNIQUE: Utilizing a 1.5 Norma magnet and dedicated coil, multiplanar, multiecho imaging of the ce rvical spine was performed before and after intravenous administration of 5 of Gadavist. FINDINGS: This exam is mildly compromised by motion artifact. Alignment of the cervical spine is anatomic. Lathe Spotter rosa concavity of the C3 through C7 vertebral bodies is unchanged. No acute cervical spine fractures a re present. Mild increased T2 signal within the C2-C3 disc is similar to prior exam. There is no para vertebral edema. There is no intracanalicular mass or fluid collection. No abnormal enhancement withi n the cervical canal is present. Cervical cord signal is within normal limits. C2-C3: There is mild disc osteophyte complex. The central canal is patent. Facet arthrosis and uncov ertebral hypertrophy result in mild to moderate left and mild right neural foraminal stenosis. C3-C4: Disc bulge with osteophyte formation slightly effaces the ventral thecal sac. There is mild c entral canal narrowing which is unchanged. Mild left neural foraminal stenosis is due to uncovertebra l hypertrophy. C4-C5: There is mild disc bulge. This slightly effaces the ventral thecal sac. There is mild central canal stenosis which is unchanged. Uncovertebral hypertrophy and facet arthrosis result in mild bila teral neural foraminal stenosis. C5-C6: There is mild disc space narrowing. Minimal posterior disc osteophyte complex without central canal stenosis. There is mild bilateral neural foraminal stenosis. C6-C7: The central canal is patent. The right neural foramen is patent. There is mild left neural fo raminal stenosis due to uncovertebral hypertrophy. C7-T1: The central canal and neural foramen are patent. IMPRESSION: 1. No acute process within the cervical spine by MRI. No evidence for acute osteomyelitis or discitis . 2. Exam mildly compromised by artifact. 3. Mild to moderate multilevel degenerative disc disease and facet arthrosis within the cervical spin e, as described above. No severe central canal stenosis. Mild multilevel central canal stenosis, as a luana. ACT 112: Negative or not required by law. Electronically signed by: David Connors M.D. 01/12/2025 3:05 PM
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
[2025-01-12] MEDS: PIPERACILLIN/TAZOBACTAM 4.5 GM/100 ML BAG IV SCH (21:12)
[2025-01-13] MEDS: PIPERACILLIN/TAZOBACTAM 4.5 GM/100 ML BAG IV SCH (06:04)
[2025-01-13 07:07] LABS: A calco-baum cmplx NotReported Not Detected (NotDetected); Bact fragilis Not Reported Not Detected (NotDetected); Blood Culture Id Panel See PCR Comment (NotDetected); C auris Not Reported Not Detected (NotDetected); Calbicans Not Reported Not Detected (NotDetected); Candida glabrata Not Reported Not Detected (NotDetected); Candida krusei Not Reported Not Detected (NotDetected); Cneoformans/gatti Not Reported Not Detected (NotDetected); Cparapsilosis Not Reported Not Detected (NotDetected); Ctropicalis Not Reported Not Detected (NotDetected); E cloacae compx Not Reported Not Detected (NotDetected); Efaecalis Not Reported Not Detected (NotDetected); Efaecium Not Reported Not Detected (NotDetected); Enterobacterales Not Reported Not Detected (NotDetected); Escherichia coli Not Reported Not Detected (NotDetected); H influenzae Not Reported Not Detected (NotDetected); K aerogenes Not Reported Not Detected (NotDetected); Koxytoca Not Reported Not Detected (NotDetected); Kpneumoniae grp Not Reported Not Detected (NotDetected); Lmonocyt Not Reported Not Detected (NotDetected); N meningitidis Not Reported Not Detected (NotDetected); P aeruginosa Not Reported Not Detected (NotDetected); Proteus spp Not Reported Not Detected (NotDetected); Salmonella spp Not Reported Not Detected (NotDetected); Staph lugdunensis Not Reported Not Detected (NotDetected); Staph spp. Not Reported Not Detected (NotDetected); Staphaureus Not Reported Not Detected (NotDetected); Staphepi Not Reported Not Detected (NotDetected); Stenmaltophilia Not Reported Not Detected (NotDetected); Strep agal(GrpB) Not Reported Not Detected (NotDetected); Strep pneum Not Reported Not Detected (NotDetected); Strep pyog (GrpA) Not Reported Not Detected (NotDetected); Strep spp Not Reported DETECTED (NotDetected); Streptococcus spp DETECTED (NotDetected)
[2025-01-13 07:14] LABS: Hematocrit (blood only) 39.1 % (42.0-52.0); Hemoglobin 13.6 g/dL (14.0-18.0); Immature Granulocytes # (auto) 0.01 K/uL (0.01-0.20); Immature Granulocytes % (auto) 0.2 %; Mean Corpuscular Hemoglobin 30.8 pg (25.0-34.0); Mean Corpuscular Volume 88.5 fL (80.0-100.0); Platelet Count 151 K/uL (130-400); RDW Standard Deviation 49.0 fL (36.4-46.3); Red Blood Count 4.42 M/uL (4.70-6.10); White Blood Count 5.98 K/ul (4.8-10.8)
[2025-01-13 08:09] LABS: Anion Gap 5.0 (3-11); Blood Urea Nitrogen 26.0 mg/dl (6-23); Calcium 9.0 mg/dl (8.6-10.3); Carbon Dioxide 25.0 mmol/L (21-32); Chloride 107.0 mmol/L (98-107); Creatinine Clr Calc Pharmacy 94.2 ml/min; Glucose 98.0 mg/dl (70-99(Fasting)); Potassium 4.4 mmol/L (3.5-5.1); Sodium 137.0 mmol/L (136-145)
[2025-01-13] MEDS: HYDROmorphone INJ 0.5 MG/0.5 ML SYR IV PRN (09:41)
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
[2025-01-14 06:55] LABS: Hematocrit (blood only) 40.7 % (42.0-52.0); Hemoglobin 13.9 g/dL (14.0-18.0); Immature Granulocytes # (auto) 0.02 K/uL (0.01-0.20); Immature Granulocytes % (auto) 0.3 %; Mean Corpuscular Hemoglobin 30.5 pg (25.0-34.0); Mean Corpuscular Volume 89.3 fL (80.0-100.0); Platelet Count 181 K/uL (130-400); RDW Standard Deviation 50.0 fL (36.4-46.3); Red Blood Count 4.56 M/uL (4.70-6.10); White Blood Count 7.14 K/ul (4.8-10.8)
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
[2025-01-14 07:17] LABS: Anion Gap 7.0 (3-11); Blood Urea Nitrogen 33.0 mg/dl (6-23); Calcium 9.6 mg/dl (8.6-10.3); Carbon Dioxide 26.0 mmol/L (21-32); Chloride 104.0 mmol/L (98-107); Creatinine Clr Calc Pharmacy 100.6 ml/min; Glucose 62.0 mg/dl (70-99(Fasting)); Potassium 4.6 mmol/L (3.5-5.1); Sodium 137.0 mmol/L (136-145)
[2025-01-15 08:30] LABS: Hematocrit (blood only) 42.8 % (42.0-52.0); Hemoglobin 14.7 g/dL (14.0-18.0); Immature Granulocytes # (auto) 0.01 K/uL (0.01-0.20); Immature Granulocytes % (auto) 0.2 %; Mean Corpuscular Hemoglobin 30.3 pg (25.0-34.0); Mean Corpuscular Volume 88.2 fL (80.0-100.0); Platelet Count 181 K/uL (130-400); RDW Standard Deviation 49.7 fL (36.4-46.3); Red Blood Count 4.85 M/uL (4.70-6.10); White Blood Count 6.04 K/ul (4.8-10.8)
[2025-01-15 08:44] LABS: Anion Gap 6.0 (3-11); Blood Urea Nitrogen 32.0 mg/dl (6-23); Calcium 9.9 mg/dl (8.6-10.3); Carbon Dioxide 23.0 mmol/L (21-32); Chloride 105.0 mmol/L (98-107); Creatinine Clr Calc Pharmacy 80.3 ml/min; Glucose 85.0 mg/dl (70-99(Fasting)); Potassium 5.1 mmol/L (3.5-5.1); Sodium 134.0 mmol/L (136-145)
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
[2025-01-15 09:04] LABS: Creatine Kinase 67.0 U/L (30-223)
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
--- NOTE | 2025-01-15 20:05 | Billing Data ---
Date of Service January 15, 2025 Coding Level of Care Code 46694 SUB INP/OBS CARE MIN
--- NOTE | 2025-01-15 20:05 | Billing Data ---
Date of Service January 15, 2025 Coding Level of Care Code 65758 SUB INP/OBS CARE MIN
[2025-01-15 23:47] VITALS: PULSE 93; RESP 18; O2SAT 96
[2025-01-16 07:57] VITALS: BP 122/75; TEMP 98.4
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
--- NOTE | 2025-01-17 14:23 | Coding Query ---
PRESSURE ULCER DOCUMENTATION To promote full compliance with coding requirements relating to patient care, physician participation is requested in all cases of manager furniture uncertainty. Please assist us with the question(s) below: Please specify the known or suspected type by placing an "X" within the parenthesis (x). A pressure ulcer of the SCALP,SACRUM & LEFT MEDIAL ANKLE WERE IDENTIFIED IN THE ER Record. If possible, please check the box that provides the specific stage of the pressure ulcer/ Scalp ( ) Stage I ( ) Stage II ( ) Stage III ( ) Stage IV (x ) Unstageable Pressure Ulcer of the Sacrum: ( ) Stage I ( ) Stage II ( ) Stage III ( ) Stage IV (x ) Unstageable Pressure Ulcer of the Left Medial Ankle: ( ) Stage I ( ) Stage II ( ) Stage III ( ) Stage IV (x ) Unstageable thank you ! JASKARAN Rodriguez [facility]
== END 2025-01-16 15:05 | disposition home health service (06) | DRG 540 ==
LOC: ED 11:01 → 2N 15:22 → SUATTDRO 15:22 → 2N 16:43 → 3W 01-14 21:42